=== PATIENT | female | born 1975 | race African-American/Black ===

== ENCOUNTER 2018-10-09 06:13 | Emergency (ER) | payer OTHER ==
[2018-10-09 06:57] LABS: Absolute Lymphocytes (CBC) 2.6 K/uL (0.7-4.9); Basophils % 0.8 % (0-1.3); Hematocrit 38.9 % (36.0-45.0); Lymphocytes % 24.1 % (15.3-44.8); MPV 8.6 fL (7.6-11.3); RBC Red Blood Cell Count 4.72 M/uL (3.86-4.86)
[2018-10-09] MEDS ORDERED: ASPIRIN 81 MG CHEWABLE TABLET ONE (07:00)
[2018-10-09 07:10] LABS: Protime INR 1.07
[2018-10-09 07:19] LABS: ALT/SGPT 19 U/L (12-78); AST/SGOT 13 U/L (15-37); Albumin 3.4 g/dL (3.4-5.0); Alkaline Phosphatase 83 U/L (45-117); BUN Blood Urea Nitrogen 9 mg/dL (7-18); Bicarbonate 25 mmol/L (21-32); Bilirubin Direct < 0.1 mg/dL (0-0.2); Bilirubin Total 0.1 mg/dL (0.2-1.0); Glucose Level 108 mg/dL (74-106); NT PRO-BNP 82 pg/mL (<125); Protein, Total 6.8 g/dL (6.4-8.2); Sodium Level 141 mmol/L (136-145); Troponin (Emerg Dept Use Only) < 0.02 ng/mL (0.0-0.045)
--- NOTE | 2018-10-09 08:17 | RAD REPORT ---
EXAM DESCRIPTION: RAD - Chest Single View - 10/09/2018 6:48 am CLINICAL HISTORY: CHEST PAIN Chest pain. COMPARISON: CHEST SINGLE VIEW dated 06/19/2014; CTANGIO CHEST FOR PE dated 06/19/2014 FINDINGS: Portable technique limits examination quality. The lungs are grossly clear. The heart is normal in size. No displaced fractures. IMPRESSION: No acute intrathoracic process suspected.
--- NOTE | 2018-10-09 10:12 | ER ---
Nurse's Notes [facility] Name: Marie Lugo Age: 43 yrs Sex: Female : 1975 Arrival Date: 10/09/2018 Time: 06:16 Bed 6 Private MD: Diagnosis: Chest pain, unspecified Presentation: 10/09 06:40 Presenting complaint: Patient states: Chest pain x 2 days with shortness of breath, lp1 states pain with respiration; Patient states "I just want to make sure I'm okay to go back to work today". Transition of care: patient was not received from another setting of care. Onset of symptoms was October 09, 2018. Risk Assessment: Do you want to hurt yourself or someone else? Patient reports no desire to harm self or others. Initial Sepsis Screen: Does the patient meet any 2 criteria? No. Patient's initial sepsis screen is negative. Does the patient have a suspected source of infection? No. Patient's initial sepsis screen is negative. Care prior to arrival: None. 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 - Social history:: Smoking status: Patient uses tobacco products, smokes one pack cigarettes per day. - Ebola Screening: : No symptoms or risks identified at this time. Screenin:44 Abuse screen: Denies threats or abuse. Denies injuries from another. Nutritional lp1 screening: No deficits noted. Tuberculosis screening: No symptoms or risk factors identified. Fall Risk None identified. Assessment: 06:44 General: Appears in no apparent distress. Behavior is calm, cooperative, appropriate lp1 for age. Pain: Complains of pain in chest Pain does not radiate. Pain currently is 10 out of 10 on a pain scale. Quality of pain is described as squeezing, Pain began 2-3 days ago. Neuro: Level of Consciousness is awake, alert, obeys commands, Oriented to person, place, time, situation, Gait is steady. Cardiovascular: Patient's skin is warm and dry. Rhythm is sinus rhythm. Respiratory: Reports shortness of breath pain with respiration Respiratory effort is even, unlabored, Breath sounds are clear bilaterally. GI: Abdomen is non-distended. : No signs and/or symptoms were reported regarding the genitourinary system. EENT: No signs and/or symptoms were reported regarding the EENT system. Derm: Skin is intact, Skin is dry, Skin is normal. Musculoskeletal: No deficits noted. 07:30 Reassessment: Patient appears in no apparent distress at this time. Patient and/or hb family updated on plan of care and expected duration. Pain level reassessed. Patient is alert, oriented x 3, equal unlabored respirations, skin warm/dry/pink. 08:30 Reassessment: Patient appears in no apparent distress at this time. No changes from hb previously documented assessment. Patient and/or family updated on plan of care and expected duration. Pain level reassessed. Patient is alert, oriented x 3, equal unlabored respirations, skin warm/dry/pink. 09:14 Reassessment: Patient appears in no apparent distress at this time. No changes from hb previously documented assessment. Patient and/or family updated on plan of care and expected duration. Pain level reassessed. Patient is alert, oriented x 3, equal unlabored respirations, skin warm/dry/pink. 10:00 Reassessment: Patient appears in no apparent distress at this time. Patient and/or hb family updated on plan of care and expected duration. Pain level reassessed. Patient is alert, oriented x 3, equal unlabored respirations, skin warm/dry/pink. Vital Signs: 06:41 BP 120 / 74; Pulse 71; Resp 20; Temp 97.3; Pulse Ox 98% on R/A; Weight 80.74 kg (R); lp1 Height 5 ft. 4 in. (162.56 cm); Pain 10/10; 08:00 BP 117 / 76; Pulse 67; Resp 15; Pulse Ox 100% on R/A; hb 09:00 BP 108 / 89; Pulse 60; Resp 14; Pulse Ox 100% on R/A; hb 10:00 BP 112 / 78; Pulse 61; Resp 15; Pulse Ox 100% on R/A; Pain 4/10; hb 06:41 Body Mass Index 30.55 (80.74 kg, 162.56 cm) lp1 ED Course: 06:16 Patient arrived in ED. ag3 06:21 Diya Nolasco FNP-C is [facility]. kb 06:21 Baljit Murguia MD is Attending Physician. kb 06:39 Arianna Cesar, RN is Primary Nurse. lp1 06:41 Triage completed. lp1 06:42 Arm band placed on right wrist. lp1 06:45 Patient has correct armband on for positive identification. Placed in gown. Bed in low lp1 position. glassware selector on. Pulse ox on. NIBP on. 06:45 Patient maintains SpO2 saturation greater than 95% on room air. lp1 06:45 Initial lab(s) drawn, by de, sent to lab. Inserted saline lock: 20 gauge in left bb antecubital area, using aseptic technique. Blood collected. 06:46 X-ray completed. Portable x-ray completed in exam room. Patient tolerated procedure kw well. 06:49 XRAY Chest (1 view) In Process Unspecified. EDMS 07:27 Basic Metabolic Panel Sent. sv 07:27 CBC with Diff Sent. sv 07:27 LFT's Sent. sv 07:27 Magnesium Sent. sv 09:36 Troponin (emerg Dept Use Only) Sent. hb 10:22 No provider procedures requiring assistance completed. IV discontinued, intact, hb bleeding controlled, No redness/swelling at site. Pressure dressing applied. Administered Medications: 06:47 Drug: Aspirin Chewable Tablet 324 mg Route: PO; jd3 Outcome: 10:11 Discharge ordered by . kb 10:22 Discharged to home ambulatory. hb 10:22 Condition: stable 10:22 Discharge instructions given to patient, Instructed on discharge instructions, follow up and referral plans. Demonstrated understanding of instructions, follow-up care. 10:23 Patient left the ED. hb Signatures: Dispatcher [employer] EDMS Diya Nolasco FNP-C FNP-Ckb Verde, Stephanie, RN RN sv Ballard, Brenda, RN RN bb Whitley, Kimberlee kw Pena, Laura, RN RN lp1 Ronda Oseguera RN RN hb Dilip, Brian RN RN jd3 Chriss, Coreen ag3
--- NOTE | 2018-10-09 10:13 | EDPHYS ---
Physician Documentation [facility] Name: Marie Lugo Age: 43 yrs Sex: Female : 1975 Arrival Date: 10/09/2018 Time: 06:16 Bed 6 Private MD: ED Physician Baljit Murguia HPI: 10/09 06:29 This 43 yrs old Black Female presents to ER via Unassigned with complaints of Chest kb Pain. 06:29 The patient or guardian reports chest pain that is located primarily in the anterior kb chest wall, left. Onset: 3 day(s) ago. The pain does not radiate. Associated signs and symptoms: Pertinent positives: shortness of breath, Pertinent negatives: abdominal pain, cough, diaphoresis, dizziness, headache, lower extremity pain, lower extremity swelling, lightheadedness, nausea, near syncope, palpitations, recent travel, syncope, vomiting. The chest pain is described as tightness. Duration: The patient or guardian reports a single episode. Modifying factors: The symptoms are alleviated by nothing. the symptoms are aggravated by deep breath. Severity of pain: At its worst the pain was moderate in the emergency department the pain is unchanged. The patient has not experienced similar symptoms in the past. The patient has not recently seen a physician. Pt reports chest pain for 3 days. Today pain feels tight. Reports shortness of breath and increased pain with deep inspiration. States "I just want to get checked because I have to go to work today.". 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 - Social history:: Smoking status: Patient uses tobacco products, smokes one pack cigarettes per day. - Ebola Screening: : No symptoms or risks identified at this time. ROS: 06:28 Constitutional: Negative for fever, chills, and weight loss, ENT: Negative for injury, kb pain, and discharge, Neck: Negative for injury, pain, and swelling, Abdomen/GI: Negative for abdominal pain, nausea, vomiting, diarrhea, and constipation, Back: Negative for injury and pain, : Negative for injury, bleeding, discharge, and swelling, MS/Extremity: Negative for injury and deformity, Skin: Negative for injury, rash, and discoloration, Neuro: Negative for headache, weakness, numbness, tingling, and seizure. 06:28 Cardiovascular: Positive for chest pain, Negative for edema, orthopnea, palpitations, paroxysmal nocturnal dyspnea. 06:28 Respiratory: Positive for shortness of breath, Negative for cough, dyspnea on exertion, hemoptysis, orthopnea, pleurisy, sputum production, wheezing. Exam: 06:28 Constitutional: This is a well developed, well nourished patient who is awake, alert, kb and in no acute distress. Head/Face: Normocephalic, atraumatic. Neck: Trachea midline, no thyromegaly or masses palpated, and no cervical lymphadenopathy. Supple, full range of motion without nuchal rigidity, or vertebral point tenderness. No Meningismus. Chest/axilla: Normal chest wall appearance and motion. Nontender with no deformity. No lesions are appreciated. Cardiovascular: Regular rate and rhythm with a normal S1 and S2. No gallops, murmurs, or rubs. Normal PMI, no JVD. No pulse deficits. Respiratory: Lungs have equal breath sounds bilaterally, clear to auscultation and percussion. No rales, rhonchi or wheezes noted. No increased work of breathing, no retractions or nasal flaring. Abdomen/GI: Soft, non-tender, with normal bowel sounds. No distension or tympany. No guarding or rebound. No evidence of tenderness throughout. Back: No spinal tenderness. No costovertebral tenderness. Full range of motion. Skin: Warm, dry with normal turgor. Normal color with no rashes, no lesions, and no evidence of cellulitis. MS/ Extremity: Pulses equal, no cyanosis. Neurovascular intact. Full, normal range of motion. Neuro: Awake and alert, GCS 15, oriented to person, place, time, and situation. Cranial nerves II-XII grossly intact. Motor strength 5/5 in all extremities. Sensory grossly intact. Cerebellar exam normal. Normal gait. 06:39 ECG was reviewed by the Attending Physician. kb Vital Signs: 06:41 BP 120 / 74; Pulse 71; Resp 20; Temp 97.3; Pulse Ox 98% on R/A; Weight 80.74 kg (R); lp1 Height 5 ft. 4 in. (162.56 cm); Pain 10/10; 08:00 BP 117 / 76; Pulse 67; Resp 15; Pulse Ox 100% on R/A; hb 09:00 BP 108 / 89; Pulse 60; Resp 14; Pulse Ox 100% on R/A; hb 10:00 BP 112 / 78; Pulse 61; Resp 15; Pulse Ox 100% on R/A; Pain 4/10; hb 06:41 Body Mass Index 30.55 (80.74 kg, 162.56 cm) lp1 MDM: 06:21 Patient medically screened. kb 06:28 The patient was given aspirin in the Emergency Department. Data reviewed: vital signs, kb nurses notes. 10:10 Data interpreted: Pulse oximetry: on room air is 100 %. Interpretation: normal. kb Counseling: I had a detailed discussion with the patient and/or guardian regarding: the historical points, exam findings, and any diagnostic results supporting the discharge/admit diagnosis, lab results, radiology results, the need for outpatient follow up, a family practitioner, to return to the emergency department if symptoms worsen or persist or if there are any questions or concerns that arise at home. 10/09 06:28 Order name: Basic Metabolic Panel 10/09 06:28 Order name: CBC with Diff 10/09 06:28 Order name: LFT's 10/09 06:28 Order name: Magnesium 10/09 06:28 Order name: NT PRO-BNP; Complete Time: 07:22 kb 10/09 06:28 Order name: PT-INR; Complete Time: 07:11 kb 10/09 06:28 Order name: Troponin (emerg Dept Use Only); Complete Time: 07:22 kb 10/09 06:28 Order name: XRAY Chest (1 view); Complete Time: 08:19 kb 10/09 06:28 Order name: D-Dimer; Complete Time: 07:11 kb 10/09 06:29 Order name: Basic Metabolic Panel; Complete Time: 07:22 EDMS 10/09 06:29 Order name: CBC with Automated Diff; Complete Time: 06:59 [facility] 10/09 06:29 Order name: Liver (Hepatic) Function; Complete Time: 07:22 [facility] 10/09 06:29 Order name: Magnesium; Complete Time: 07:22 [facility] 10/09 09:12 Order name: Troponin (emerg Dept Use Only); Complete Time: 10:10 kb 10/09 06:28 Order name: EKG; Complete Time: 06:30 kb 10/09 06:28 Order name: Cardiac monitoring; Complete Time: 06:43 kb 10/09 06:28 Order name: EKG - Nurse/Tech; Complete Time: 06:44 kb 10/09 06:28 Order name: IV Saline Lock; Complete Time: 06:47 kb 10/09 06:28 Order name: Labs collected and sent; Complete Time: 06:47 kb 10/09 06:28 Order name: O2 Per Protocol; Complete Time: 06:44 kb 10/09 06:28 Order name: O2 Sat Monitoring; Complete Time: 06:44 kb 10/09 09:12 Order name: EKG; Complete Time: 09:13 kb 10/09 09:12 Order name: EKG - Nurse/Tech; Complete Time: 09:36 kb EC:39 Rate is 62 beats/min. Rhythm is regular, Normal Sinus Rhythm. QRS [place] is Normal. ND kb interval is normal at 124 msec. QRS interval is normal at 72 msec. QT interval is normal at 390 msec. Clinical impression: Normal ECG. Interpreted by me. Reviewed by me. Administered Medications: 06:47 Drug: Aspirin Chewable Tablet 324 mg Route: PO; jd3 Disposition: 10/09/18 10:11 Discharged to Home. Impression: Chest pain, unspecified. - Condition is Stable. - Discharge Instructions: Nonspecific Chest Pain, [id number]. - Medication Reconciliation Form, Thank You Letter, Antibiotic Education, Prescription Opioid Use, Work release form form. - Follow up: Emergency Department; When: As needed; Reason: Worsening of condition. Follow up: Private Physician; When: 2 - 3 days; Reason: Recheck today's complaints, Continuance of care, Re-evaluation by your physician. Signatures: Dispatcher [employer] EDDiya Vazquez, BUSINESS PROCESS EXPERT-C BUSINESS PROCESS EXPERT-Arianna Gallegos, RN RN lp1 Ronda Oseguera RN RN Brian Cherry RN RN jd3 Corrections: (The following items were deleted from the chart) 10:23 10:11 10/09/2018 10:11 Discharged to Home. Impression: Chest pain, unspecified. hb Condition is Stable. Forms are Medication Reconciliation Form, Thank You Letter, Antibiotic Education, Prescription Opioid Use. Follow up: Emergency Department; When: As needed; Reason: Worsening of condition. Follow up: Private Physician; When: 2 - 3 days; Reason: Recheck today's complaints, Continuance of care, Re-evaluation by your physician. kb
--- NOTE | 2018-10-09 12:24 | EKG ---
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
--- NOTE | 2018-10-09 12:25 | EKG ---
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
== END 2018-10-09 10:23 | disposition home or self-care (01) ==
LOC: ER 06:13
DX: R07.9 Chest pain, unspecified (principal); R06.02 Shortness of breath; J45.909 Unspecified asthma, uncomplicated; F31.9 Bipolar disorder, unspecified; Z88.5 Allergy status to narcotic agent; Z88.0 Allergy status to penicillin; Z79.82 Long term (current) use of aspirin
CPT/HCPCS: 36415; 71045; 80048; 80076; 83735; 83880; 84484; 85025; 85379; 85610; 93005; 99285

== ENCOUNTER 2023-07-18 15:36 | Emergency (ER) | payer OTHER ==
--- OUTSIDE RECORDS SUMMARY | 2023-07-18 15:39 | XMS REPORT | Continuity of Care Document ---
Author Name Unknown Address [address] [facility] [address] [place] [address] [facility] thconnect Address [address] 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 Iron Name Role Phone ARPITA ROSE Primary Care Physician UnavailYUMIKO Uribe Attending Clinician Unavailable Yumiko Tinoco DO Attending Clinician [phone] Doctor Unassigned, [place] Attending Clinician U Jhony Smith MD Attending Clinician [phone] JHONY ROTHMAN Attending Clinician PARIS Kong Attending Clinician Unavailable Paris Cordova MD Attending Clinician [phone] LISA DONALDSON Attending Clinician [place], [facility] Attending Clinician Thao Montemayor MD Attending Clinician [phone] THAO SANDERS Attending Clinician Lisa Barry MD Attending Clinician [phone] TIMBO GARCIA Attending Clinician RADHA Leyva Attending Clinician Unavailable PARIS CORDOVA Admitting Clinician Unavailable Payers Payer Name Policy Type Policy Number Effective Date Expirati on Date Source COMMERCIAL NON-CONTRACT GENERIC [id number] 2023 00:00:00 2023 00:00:00 [facility] [id number] 2020 00:00:00 ALLIED BENEFIT [id number] 2016 00:00:00 Problems Condition Name Condition Details Condition Category Status Onset Date Resolution Date Last Treatment Date Treating Clinician Comments Source Bipolar 1 disorder Bipolar 1 disorder Disease Active [facility] Allergies, Adverse Reactions, Alerts Allergy Name Allergy Type Status Severity Reaction(s) Onset Date Inactive Date Treating Clinician Comments Source PENICILL IN DRUG INGREDI Active Unknown-Cmnt 07-24 00:00: 00 [facility] Penicill in Propensi ty to adverse reaction s Active Unknown - See comments 07-24 00:00: 00 [facility] CODEINE DRUG INGREDI Active Unknown-Cmnt 07-24 00:00: 00 [facility] Penicill ins Propensi ty to adverse reaction s Active Rash 10-19 00:00: 00 [facility] PENICILL INS Drug Class Active Rash 10-19 00:00: 00 [facility] Penicill ins Propensi ty to adverse reaction s Active Rash 10-19 00:00: 00 [facility] Social History Social Habit Start Date Stop Date Quantity Comments Source [facility] of tobacco use Smokes tobacco daily [facility] Exposure to SARS-CoV-2 (event) 2021-09-13 00:00:00 2021-09-23 10:48:00 Not sure [facility] History of Social function 2021-09-23 00:00:00 2021-09-23 00:00:00 [facility] Tobacco use and exposure 2017-03-15 00:00:00 2017-03-15 00:00:00 Smokeless tobacco non-user [facility] Sex Assigned At 1975 00:00:00 1975 00:00:00 [facility] Smoking Status Start Date Stop Date Source Tobacco smoking consumption unknown [facility] Smokes tobacco daily 2017-03-15 00:00:00 [facility] Medications Ordered Medication Name Filled Medication Name Start Date Stop Date Current Medication? Ordering Clinician Indication Dosage Frequency Signature (SIG) Comments Components Source proCHLORper azine (COMPAZINE) injection 5 mg 05-18 00:00: 00 05-17 23:25 :00 No 5mg 5 mg, Slow IV Push, ONCE, 1 dose, On Coreen 05/17/23 at 1800, CAMILO [facility] diphenhydrA MINE (BENADRYL) injection 25 mg 05-17 23:15: 00 05-17 23:25 :00 No 25mg 25 mg, Slow IV Push, ONCE, 1 dose, On Coreen 05/17/23 at 1715, STAT [facility] risperiDONE (RISPERDAL) 4 mg tablet 05-17 19:32: 51 05-17 00:00 :00 No 4mg Take 4 mg by mouth at bedtime. [facility] lamoTRIgine (LAMICTAL) 200 mg tablet 05-17 19:32: 51 05-17 00:00 :00 No 200mg Take 200 mg by mouth 2 (two) times daily. [facility] hydrOXYzine (ATARAX) 50 mg tablet 05-17 18:52: 33 05-17 00:00 :00 No 50mg Take 50 mg by mouth 3 (three) times daily as needed for Itching. [facility] hydrOXYzine (VISTARIL) 50 mg capsule 05-17 00:00: 00 Yes [id number] 50mg Take 1 capsule by mouth 3 (three) times daily as needed for Itching. [facility] lamoTRIgine 200 mg tablet 05-17 00:00: 00 Yes [id number] 200mg Take 1 tablet by mouth in the morning and 1 tablet in the evening. [facility] risperiDONE (RISPERDAL) 4 mg tablet 05-17 00:00: 00 Yes [id number] 4mg Take 1 tablet by mouth at bedtime. [facility] cyclobenzap rine 10 mg tablet 09-23 00:00: 00 Yes 10mg Take 1 tablet by mouth 3 (three) times daily. [facility] methylPREDN ISolone (METHYLPRED DP) 4 mg tablets 09-23 00:00: 00 Yes Take by mouth SEE-INSTRU CTIONS. follow package directions [facility] permethrin 5 % cream 05-02 00:00: 00 Yes [id number] Thoroughly massage cream from head to soles of feet; leave on for 8 to 14 hours, then shower or bathe. [facility] hydrOXYzine (VISTARIL) 50 mg capsule 05-02 00:00: 00 05-17 00:00 :00 No [id number] 50mg Take 1 capsule by mouth 3 (three) times daily as needed for Itching. [facility] diclofenac 75 mg EC tablet 07-24 00:00: 00 Yes [id number] 75mg Take 1 tablet by mouth 2 (two) times daily with meals. [facility] traMADol 100 mg 24 hr tablet 06-27 00:00: 00 Yes TK 1 T PO D. [facility] lamoTRIgine 200 mg tablet 06-20 00:00: 00 05-17 00:00 :00 No TK 1 T PO BID. [facility] gabapentin 300 mg capsule 05-16 00:00: 00 Yes TK 1 C PO BID [facility] risperiDONE (RISPERDAL) 4 mg tablet 2016-04 15:12: 02 Yes 4mg Take 4 mg by mouth at bedtime. [facility] lamoTRIgine (LAMICTAL) 200 mg tablet 2016-04 15:12: 02 Yes 200mg Take 200 mg by mouth 2 (two) times daily. [facility] hydrOXYzine (ATARAX) 50 mg tablet 2016-04 15:12: 02 Yes 50mg Take 50 mg by mouth 3 (three) times daily as needed for Itching. [facility] TRAZODONE HCL (TRAZODONE ORAL) 2016-04 15:12: 02 Yes Take by mouth. [facility] gabapentin 300 mg capsule 2016-04 00:00: 00 Yes [facility] meloxicam 7.5 mg tablet 2016-04 00:00: 00 Yes [facility] Vital Signs Vital Name Observation Time Observation Value Comments S jillian Systolic blood pressure 2023-05-18 01:05:29 115 mm[Hg] [facility] Diastolic blood pressure 2023-05-18 01:05:29 81 mm[Hg] [facility] Heart rate 2023-05-18 01:05:29 60 /min [facility] Respiratory rate 2023-05-18 01:05:29 18 /min [facility] Oxygen saturation in Arterial blood by Pulse oximetry 2023-05-18 01:05:29 96 /min [facility] Body temperature 2023-05-17 21:35:00 36.89 Sarah [facility] Body height 2023-05-17 21:35:00 162.6 cm [facility] Body weight 2023-05-17 21:35:00 83.008 kg [facility] BMI 2023-05-17 21:35:00 31.41 kg/m2 [facility] Systolic blood pressure 2021-09-23 15:50:00 115 mm[Hg] [facility] Diastolic blood pressure 2021-09-23 15:50:00 68 mm[Hg] [facility] Body height 2021-09-23 15:50:00 162.6 cm [facility] Body weight 2021-09-23 15:50:00 82.555 kg [facility] BMI 2021-09-23 15:50:00 31.24 kg/m2 [facility] Procedures Procedure Date / Time Performed Performing Clinicia n Source COMP. METABOLIC PANEL (69437) 2023-05-17 23:28:00 Yumiko Tinoco [facility] CBC WITH DIFF 2023-05-17 23:28:00 Yumiko Tinoco [facility] ASSIGNMENT OF BENEFITS 2023-05-17 22:15:36 Docto r Unassigned, [place] [facility] CONSENT/REFUSAL FOR DIAGNOSIS AND TREATMENT 2023-05-17 21:31:52 Doctor Unassigned, [place] [facility] REFERRAL- REQUEST/RESPONSE 2021-10-03 05:01:00 Doctor Unassigned, [place] [facility] Encounters Start Date/Time End Date/Time Encounter Type Admission Type Attending Clinicians Care Facility Care Department Encounter ID Source 2021-02-12 17:48:15 Emergency [facility] [id number] [facility] 2023-05-17 15:59:00 2023-05-17 19:44:00 Emergency X YUMIKO TINOCO [facility] ERT [id number] [facility] 2023-05-17 15:59:00 2023-05-17 19:44:00 Emergency Yumiko Tinoco [facility] 1.2.840.114 350.1.13.10 4.2.7.2.686 [id number] [facility] 2021-10-03 00:00:00 2021-10-03 00:00:00 Orders Only Doctor Unassigned, [place] [facility] 1.2840.114 350.1.13.10 4.2.7.2.686 [id number] [facility] 2021-09-27 00:00:00 2021-09-27 00:00:00 Telephone Bonifacio Rothmansukhdev Elena [facility] 1..840.114 350.1.13.10 4.2.7.2.686 [id number] [facility] 2021-09-23 11:00:00 2021-09-23 11:05:47 Outpatient R JHONY ROTHMAN [facility] [id number] [facility] 2021-09-23 11:00:00 2021-09-23 11:05:47 Office Visit Hugh Jhony Elena [facility] 1.2.840.114 350.1.13.10 4.2.7.2.686 [id number] [facility] 2021-09-21 19:12:00 2021-09-21 23:04:00 Emergency X PARIS CORDOVA [facility] ERT [id number] [facility] 2021-09-21 19:12:00 2021-09-21 23:04:00 Emergency Paris Cordova [facility] 1.2840.114 350.1.13.10 4.2.7.2.686 [id number] [facility] 2021-09-21 19:12:00 2021-09-21 23:04:00 Emergency X PARIS CORDOVA [facility] ERT [id number] [facility] 2020-08-18 00:00:00 2020-08-18 00:00:00 [facility] [id number] [facility] 2020-08-16 16:08:40 2020-08-16 16:23:40 Ostomy Rn Visit Pob, Adc Lab Main Thao Sanders [facility] Professio [facility] 1.2.840.114 350.1.13.10 4.2.7.2.686 [id number] [facility] 2020-08-16 16:15:00 2020-08-16 16:15:00 Outpatient Rishi SANDERS [facility] [id number] [facility] 2020-08-16 00:00:00 2020-08-16 00:00:00 Orders Only Doctor Unassigned, [place] [facility] 1.2840.114 350.1.13.10 4.2.7.2.686 [id number] [facility] 2020-07-05 10:58:58 2020-07-05 23:59:00 Hospital Encounter Lisa Donaldson [facility] 1.2840.114 350.1.13.10 4.2.7.2.686 [id number] [facility] 2020-07-05 12:00:00 2020-07-05 12:00:00 Outpatient R LISA DONALDSON [facility] [id number] [facility] 2020-07-05 10:55:38 2020-07-05 11:10:38 Ostomy Rn Visit Pob, Adc Lab Main Lisa Donaldson [facility] 1..840.114 350.1.13.10 4.2.7.2.686 [id number] [facility] 2020-07-05 00:00:00 2020-07-05 00:00:00 Orders Only Doctor Unassigned, [place] [facility] 1..840.114 350.1.13.10 4.2.7.2.686 [id number] [facility] 2020-05-02 17:43:00 2020-05-02 19:32:00 Emergency X TIMBO GARCIA [facility] ERT [id number] [facility] 2019-10-22 00:00:00 2019-10-22 00:00:00 Patient Secure Msg Doctor Unassigned, [place] [facility] 1..840.114 350.1.13.10 4.2.7.2.686 [id number] [facility] 2019-10-21 09:00:00 2019-10-21 09:00:00 Outpatient RADHA PRATT [facility] [id number] [facility] 2019-10-21 08:00:00 2019-10-21 08:00:00 Outpatient Rishi [facility] [id number] [facility] 2017-03-27 16:00:00 2017-03-27 16:00:00 Outpatient JHONY MCCRACKEN [facility] RAD [id number] [facility] Results Test Description Test Time Test Comments Results Result Co mments [facility]2023-[facility]-18 00:47:38* Test Item Value Reference Range Interpretation Comme nts NA (test code = 5592327790) 138 mmol/L 135-145 K (test code = 0651370940) 4.3 mmol/L 3.5-5.0 CL (test code = 6440658129) 107 mmol/L 98-108 CO2 TOTAL (test code = 0796655069) 24 mmol/L 23-31 AGAP (test code = 9295093320) 7 2-16 BUN (test code = 1874199396) 12 mg/dL 7-23 GLUCOSE (test code = 9797565659) 77 mg/dL 70-110 CREATININE (test code = 1387568825) 0.54 mg/dL 0.50-1.04 TOTAL BILI (test code = 1108607351) 0.6 mg/dL 0.1-1.1 CALCIUM (test code = 3672508207) 9.2 mg/dL 8.6-10.6 T PROTEIN (test code = 8204358914) 8.2 g/dL 6.3-8.2 ALBUMIN (test code = 5431538814) 4.5 g/dL 3.5-5.0 ALK PHOS (test code = 8609813296) 74 U/L 34-122 ALTv (test code = 1742-6) 14 U/L 5-35 AST(SGOT) (test code = 3765264381) 30 U/L 13-40 eGFR (test code = 61586-4) 114.4 mL/min/1.73m2 CKD-EPI eGFR (20 21). Assuming creatinine has been stable day-to-day for at least three months, the eGFR indicates Category G1 (>= 90 mL/min/1.73 m2) [facility] Notes Date/Time Note Provider Source 2023-05-17 19:12:23 M6/hAS/wMzww1wiDN9LY Iz6yUKyP/yZxqC 3bMs03akoZzc01m3vOl5Z4bQl320bD9092 -02-01T19:12:23 PT D/C home. GCS15, VS stable. Given D/C paperwork. Pt ambulatory at time of discharge. Pt educated on med usage, follow up care, s/s worsening condition, need for hydration. Pt verbalized understanding. Pt ambulated from ED in NAD. 39381-1Iqsegywxa department UqwjQE9202-75-69T45:12:59[facility] NoteTXT1.2.840.974850.1.13.104.2.7 .2.041071|[id number] for patient axxm45073-7InsdHUTORSCAAYTOxqrwkbk d C-CDA narrative [id number] E Linkes RN[address] Cncz[id number] 23ISFINRMDNFTCBXUZSCIVZY9648-28-56 T19:12:591.2.840.852524.1.72.3.15| 1.2.840.938820.1.13.104.2.7.2.7278 [id number] Leanna Senior RN [facility] 2023-05-17 15:45:00 dPQn0nbos6DFlBobYEjz 9Ju//bkepIhv09 cK7Vbj8bqUB7AJ8o53Z1raS1rc8Vgi7496 -02-01T15:45:00 Patient states: "I've been checking my blood pressure at home and at work and it's been constantly high since a week now, I am not hypertensive and not on meds. I checked my BP the night before and it was 169/98. I'm also having headaches since 10 days now. Today an hour ago at work I feel like my face is twitching and I got pain on my left neck, arm and legs, can't explain the feeling." 31297-4Qbcwefuxg department Triage iauyRJ2424-16-21J34:11:45[facility] Triage noteTXT1.2.840.382119.1.13.104.2.7 .2.646964|[id number] for patient usnv63994-0Ycxkjkfqm department NoteLNNARRATIVEFormatted C-CDA narrative [id number] C Hered[place] [address] Xj[id number] 94XBBXLTSNZUIUIAATHVBCSR6386-57-78 T16:11:451.2.840.289038.1.72.3.15| 1.2.840.898185.1.13.104.2.7.2.7278 [id number] Cindy Posada [facility]
[2023-07-18] MEDS ORDERED: FAMOTIDINE 20 MG/2 ML VIAL IV ONE (15:57)
[2023-07-18 16:41] LABS: Absolute Basophils 0.2 K/uL (0-0.5); Absolute Eosinophils 0.1 K/uL (0-0.5); Absolute Lymphocytes (CBC) 3.6 K/uL (0.7-4.9); Absolute Monocytes 0.6 K/uL (0.1-1.3); Absolute Neutrophil 7.6 K/uL (1.8-8.0); Basophils % 1.3 % (0-1.3); Eosinophils % 1.1 % (0-4.4); Hematocrit 36.6 % (36.0-45.0); Hemoglobin 11.5 g/dL (12.0-15.0); Lymphocytes % 29.8 % (15.3-44.8); MCH 25.4 pg (27.0-35.0); MCHC 31.5 g/dL (32.0-36.0); MCV 80.8 fL (80-100); MPV 8.4 fL (7.6-11.3); Monocytes % 5.2 % (3.3-12.3); Neutrophils % 62.6 % (41.7-73.7); Platelets 271 thou/uL (152-406); RBC Red Blood Cell Count 4.53 M/uL (3.86-4.86); Red Cell Distribution Width 14.8 % (12.1-15.2)
[2023-07-18 16:45] LABS: PT Prothrombin Time 12.9 SECONDS (9.5-12.5); Protime INR 1.18
--- NOTE | 2023-07-18 17:00 | RAD REPORT ---
[facility] DES[facility] 4:29 pm CLINICAL HISTORY: CHEST PAIN COMPARISON: Chest Single View dated 10/09/2018; CHEST SINGLE VIEW dated 06/19/2014 TECHNIQUE: Portable AP view of the chest. FINDINGS: The lungs are clear. No pneumothorax or effusion. The cardiomediastinal contours are unre markable. IMPRESSION: No acute cardiopulmonary process.
[2023-07-18 17:06] LABS: ALT/SGPT 16 U/L (13-56); AST/SGOT 13 U/L (15-37); Albumin 3.6 g/dL (3.4-5.0); Alkaline Phosphatase 80 U/L (45-117); Anion Gap 7.6 mEq/L (5.0-15.0); BUN Blood Urea Nitrogen 15 mg/dL (7-18); Bicarbonate 24 mEq/L (21-32); Bilirubin Direct 0.1 mg/dL (0-0.2); Bilirubin Indirect, Calculated 0.1 mg/dL (0.2-0.8); Bilirubin Total 0.2 mg/dL (0.2-1.0); Globulin 3.5 g/dL (2.3-3.5); Glomerular Filtration Rate 108 ml/min (=/>90); Glucose Level 90 mg/dL (74-106); Lipase 18 U/L (13-75); NT PRO-BNP 84 pg/mL (<125); Potassium 3.6 mEq/L (3.5-5.1); Protein, Total 7.1 g/dL (6.4-8.2); Sodium Level 140 mEq/L (136-145)
[2023-07-18 17:07] LABS: Troponin High Sensitivity < 3.0 pg/mL (<58.9)
--- NOTE | 2023-07-18 18:20 | EDPHYS ---
Physician Documentation [facility] Name: Marie Kearns Age: 47 yrs Sex: Female : 1975 Arrival Date: 07/18/2023 Time: 15:36 Bed 14 Private MD: ED Physician Xavi Talavera HPI: 07/17 16:03 This 47 yrs old Black Female presents to ER via EMS with complaints of Chest Pain. ms3 16:03 47-year-old female with past medical history of asthma, arthritis, bipolar disorder ms3 presents to the emergency department for chest pain that began at 2:40 PM after taking a shower. Patient states the pain is sharp located substernally and does not radiate. Patient rates pain 10/10. EMS notes patient's vital signs to be stable, twelve-lead was normal sinus rhythm. Patient denies any alleviating or inciting factors. Patient did receive 324 mg aspirin via EMS. Historical: - Allergies: 15:39 PENICILLINS; bp 15:39 Tylenol-Codeine #3; bp - Home Meds: 15:39 Lamictal Oral [Active]; Risperdal Oral [Active]; Prozac Oral [Active]; Clonazepam Oral bp [Active]; Hydroxyzine Oral [Active]; - PMHx: 15:39 Asthma; Arthritis; Bipolar disorder; bp - Immunization history:: Adult Immunizations up to date. - Infectious Disease History:: Denies. - Social history:: Smoking status: Patient denies any tobacco usage or history of. ROS: 16:03 Constitutional: Negative for fever, and chills. Neck: Negative for injury, pain, and ms3 swelling, Respiratory: Negative for shortness of breath, cough, wheezing, and pleuritic chest pain, Abdomen/GI: Negative for abdominal pain, nausea, vomiting, diarrhea, and constipation, MS/Extremity: Negative for injury and deformity, 16:03 All other systems are negative, 16:03 Cardiovascular: Positive for chest pain, ms3 Exam: 16:03 Constitutional: This is a well developed, well nourished patient who is awake, alert, ms3 and in no acute distress. Head/Face: Normocephalic, atraumatic. Neck: Trachea midline, no cervical lymphadenopathy. Supple, full range of motion without nuchal rigidity, or vertebral point tenderness. No Meningismus. Chest/axilla: Normal chest wall appearance and motion. Nontender with no deformity. Cardiovascular: Regular rate and rhythm with a normal S1 and S2. No gallops, murmurs, or rubs. Normal PMI, no JVD. No pulse deficits. Respiratory: Lungs have equal breath sounds bilaterally, clear to auscultation and percussion. No rales, rhonchi or wheezes noted. No increased work of breathing, no retractions or nasal flaring. Abdomen/GI: Soft, non-tender, with normal bowel sounds. No distension or tympany. No guarding or rebound. No evidence of tenderness throughout. Skin: Warm, dry with normal turgor. Normal color with no rashes, no lesions, and no evidence of cellulitis. MS/ Extremity: Pulses equal, no cyanosis. Neurovascular intact. Full, normal range of motion. 16:20 ECG was reviewed by the Attending Physician. ms3 Vital Signs: 15:38 BP 138 / 76; Pulse 65; Resp 16; Temp 98; Pulse Ox 99% ; bp 18:37 BP 121 / 69; Pulse 60; Resp 16; Temp 97.9; Pulse Ox 97% ; bp MDM: 15:39 Patient medically screened. zuleima 16:03 Differential diagnosis: abnormal EKG, acute myocardial infarction, anxiety, coronary ms3 artery disease chest wall pain. The patient was not given aspirin in the Emergency Department. Administered by EMS. 17:46 HEART Score: History: Slightly Suspicious (0), ECG: Normal (0), Age: > 45 and < 65 ms3 years (1), Risk Factors: No Risk Factors Known (0), Troponin: < or = 1 x Normal Limit (0), Total Score = 1. Data reviewed: vital signs, nurses notes, lab test result(s), EKG, radiologic studies. Independent interpretation of the following test(s) in the Emergency Department EKG: See my EKG interpretation above X-Ray: My interpretation is CXR image reviewed by me does not show pneumonia, PTX, or pulmonary edema. Counseling: I had a detailed discussion with the patient and/or guardian regarding the historical points, exam findings, and any diagnostic results supporting the discharge/admit diagnosis, lab results, radiology results, the need for outpatient follow up, to return to the emergency department if symptoms worsen or persist or if there are any questions or concerns that arise at home. 07/17 15:46 Order name: D-Dimer; Complete Time: 17:22 ms3 07/17 15:47 Order name: Basic Metabolic Panel; Complete Time: 17:22 zuleima 07/17 15:47 Order name: CBC with Diff; Complete Time: 17:22 zuleima 07/17 15:47 Order name: LFT's; Complete Time: 17:22 zuleima 07/17 15:47 Order name: Magnesium; Complete Time: 17:22 zuleima 07/17 15:47 Order name: NT PRO-BNP; Complete Time: 17:22 zuleima 07/17 15:47 Order name: PT-INR; Complete Time: 17:22 zuleima 07/17 15:47 Order name: Troponin HS; Complete Time: 17:22 zuleima 07/17 15:47 Order name: Lipase; Complete Time: 17:22 zuleima 07/17 17:23 Order name: Troponin High Sensitivity; Complete Time: 18:19 ms3 07/17 15:46 Order name: XRAY Chest (1 view); Complete Time: 17:22 ms3 07/17 15:46 Order name: Cardiac monitoring; Complete Time: 16:20 ms3 07/17 15:46 Order name: EKG - Nurse/Tech; Complete Time: 16:20 ms3 07/17 15:46 Order name: IV Saline Lock; Complete Time: 16:20 ms3 07/17 15:46 Order name: Labs collected and sent; Complete Time: 16:20 ms3 07/17 15:46 Order name: O2 Per Protocol; Complete Time: 16:20 ms3 07/17 15:46 Order name: O2 Sat Monitoring; Complete Time: 16:20 ms3 07/17 15:47 Order name: Cardiac monitoring; Complete Time: 16:20 zuleima 07/17 15:47 Order name: EKG - Nurse/Tech; Complete Time: 16:20 zuleima 07/17 15:47 Order name: IV Saline Lock; Complete Time: 16:20 zuleima 07/17 15:47 Order name: Labs collected and sent; Complete Time: 16:20 zuleima 07/17 15:47 Order name: O2 Per Protocol; Complete Time: 16:20 zuleima 07/17 15:47 Order name: O2 Sat Monitoring; Complete Time: 16:20 zuleima EC:20 Rate is 55 beats/min. Rhythm is regular. QRS [place] is Normal. CO interval is normal. QRS ms3 interval is normal. Clinical impression: Sinus bradycardia. Interpreted by me. Reviewed by me. Administered Medications: 15:55 CANCELLED (Physician Discretion): ns 0.9% 1000 ml IV at 1 bolus Per protocol; 1000 mL ms3 bolus 16:19 CANCELLED (Duplicate Order): aspirinchewable tablet 324 mg PO once; 81 mg tablets x 4 bp 16:20 Drug: Famotidine IVP 20 mg IVP once; dilute with 10 mL 0.9% NaCl; give over 2 minutes bp Route: IVP; Site: right hand; 18:39 Follow up: Response: No adverse reaction bp Disposition Summary: 07/18/23 18:19 Discharge Ordered Notes: Location: Home(07/18/23 18:19) kb Condition: Stable(07/18/23 18:19) kb Diagnosis - Chest pain, unspecified(07/18/23 18:19) kb Followup: ms3 - With: Myles Patel MD - When: 2 - 3 days - Reason: Recheck today's complaints Discharge Instructions: - Discharge Summary Sheet ms3 - Nonspecific Chest Pain, Adult ms3 Forms: - Medication Reconciliation Form kb - Thank You Letter kb - Antibiotic Education kb - Prescription Opioid Use kb - Patient Portal Instructions kb - Leadership Thank You Letter kb Signatures: Dispatcher [employer] EDDiya Vazquez, HIGH DENSITY PRESS OPERATOR-C HIGH DENSITY PRESS OPERATOR-Larryb Baljit Murguia MD MD cha Peltier, Brian, RN RN Xavi Pastor DO DO ms3 Corrections: (The following items were deleted from the chart) 15:47 15:47 D-DIMER+COAG.LAB.BRZ ordered. EDMS EDMS 15:47 15:47 Chest Single View+RAD.RAD.BRZ ordered. EDMS EDMS 15:48 15:48 BASIC METABOLIC PANEL+C.LAB.BRZ ordered. EDMS EDMS 15:48 15:48 CBC+H.LAB.BRZ ordered. EDMS EDMS 15:48 15:48 HEPATIC FUNCTION+C.LAB.BRZ ordered. EDMS EDMS 15:48 15:48 MAGNESIUM+C.LAB.BRZ ordered. EDMS EDMS 15:48 15:48 PROBNP+C.LAB.BRZ ordered. EDMS EDMS 15:48 15:48 PROTIME (+INR)+COAG.LAB.BRZ ordered. EDMS EDMS 15:48 15:48 Troponin High Sensitivity+C.LAB.BRZ ordered. EDMS EDMS 15:48 15:48 LIPASE+C.LAB.BRZ ordered. EDMS EDMS 15:48 15:48 Urinalysis+U.LAB.BRZ ordered. EDMS EDMS 15:48 15:48 Chest Single View+RAD.RAD.BRZ ordered. EDMS EDMS 15:55 15:47 NS 0.9% IV 1000 ml IV at 1 bolus Per protocol; 1000 mL bolus ordered. zuleima ms3 16:05 16:03 Constitutional: Negative for fever, and chills. Neck: Negative for injury, pain, ms3 and swelling, Cardiovascular: Negative for chest pain, and palpitations. Respiratory: Negative for shortness of breath, cough, wheezing, and pleuritic chest pain, Abdomen/GI: Negative for abdominal pain, nausea, vomiting, diarrhea, and constipation, MS/Extremity: Negative for injury and deformity, ms3 16:19 15:47 Aspirin PO Chewable Tablet 324 mg PO once; 81 mg tablets x 4 ordered. zuleima bp 16:37 15:47 CBC+H.LAB.BRZ ordered. EDMS EDMS 16:40 15:47 BASIC METABOLIC PANEL+C.LAB.BRZ ordered. EDMS EDMS 16:40 15:47 HEPATIC FUNCTION+C.LAB.BRZ ordered. EDMS EDMS 16:40 15:47 MAGNESIUM+C.LAB.BRZ ordered. EDMS EDMS 16:40 15:47 PROBNP+C.LAB.BRZ ordered. EDMS EDMS 16:40 15:47 Troponin High Sensitivity+C.LAB.BRZ ordered. EDMS EDMS 17:23 17:23 Troponin High Sensitivity+C.LAB.BRZ ordered. EDMS EDMS 17:45 17:45 Home ms3 ms3 17:45 17:45 new ms3 ms3 17:45 17:45 are unchanged ms3 ms3 17:45 17:45 Stable ms3 ms3 17:45 17:45 Chest pain, unspecified ms3 ms3
--- NOTE | 2023-07-18 18:20 | ER ---
Nurse's Notes [facility] Name: Marie Kearns Age: 47 yrs Sex: Female : 1975 Arrival Date: 07/18/2023 Time: 15:36 Bed 14 Private MD: Diagnosis: Chest pain, unspecified Presentation: 07/17 15:38 Chief complaint: EMS states: CHEST PAIN SINCE 1430. Coronavirus screen: At this time, bp the client does not indicate any symptoms associated with coronavirus-19. Ebola Screen: No symptoms or risks identified at this time. Initial Sepsis Screen: Does the patient meet any 2 criteria? No. Patient's initial sepsis screen is negative. Does the patient have a suspected source of infection? No. Patient's initial sepsis screen is negative. Risk Assessment: Do you want to hurt yourself or someone else? Patient reports no desire to harm self or others. Onset of symptoms was July 18, 2023 at 14:30. Care prior to arrival: Medication(s) given: ASA, 81 mg, x 4. 15:38 Method Of Arrival: EMS: [facility] bp 15:38 Acuity: JESSICA 3 bp Triage Assessment: 15:39 General: Appears in no apparent distress. Behavior is calm, cooperative, appropriate bp for age. Pain: Complains of pain in chest. Cardiovascular: Reports chest pain. Historical: - Allergies: 15:39 PENICILLINS; bp 15:39 Tylenol-Codeine #3; bp - Home Meds: 15:39 Lamictal Oral [Active]; Risperdal Oral [Active]; Prozac Oral [Active]; Clonazepam Oral bp [Active]; Hydroxyzine Oral [Active]; - PMHx: 15:39 Asthma; Arthritis; Bipolar disorder; bp - Immunization history:: Adult Immunizations up to date. - Infectious Disease History:: Denies. - Social history:: Smoking status: Patient denies any tobacco usage or history of. Screenin:37 [facility] ED Fall Risk Assessment (Adult) History of falling in the last 3 months, bp including since admission No falls in past 3 months (0 pts). Abuse screen: Denies threats or abuse. Denies injuries from another. Nutritional screening: No deficits noted. Tuberculosis screening: No symptoms or risk factors identified. Assessment: 15:45 General: SEE TRIAGE NOTE. bp 18:37 Reassessment: DC HOME AMBULATORY. bp Vital Signs: 15:38 BP 138 / 76; Pulse 65; Resp 16; Temp 98; Pulse Ox 99% ; bp 18:37 BP 121 / 69; Pulse 60; Resp 16; Temp 97.9; Pulse Ox 97% ; bp ED Course: 15:38 Patient arrived in ED. bp 15:39 Baljit Murguia MD is Attending Physician. zuleima 15:39 Triage completed. bp 15:39 Arm band placed on. bp 15:46 Attending Physician role handed off by Baljit Murguia MD ms3 15:46 Xavi Talavera DO is Attending Physician. ms3 16:19 Buck Vaz, DEAN is Primary Nurse. bp 16:20 Lipase Sent. bp 16:20 Inserted saline lock: 24 gauge in right hand, using aseptic technique. Blood collected. bp 16:31 XRAY Chest (1 view) In Process Unspecified. EDMS 17:45 Myles Patel MD is Referral Physician. ms3 17:59 Diya Nolasco FNP-C [facility]. kb 18:19 Myles Patel MD is Referral Physician. kb 18:37 Patient has correct armband on for positive identification. Provided Education on: bp NONE. Client placed on continuous cardiac and pulse oximetry monitoring. NIBP monitoring applied. hospital monitor on. 18:37 No provider procedures requiring assistance completed. IV discontinued, intact, bp bleeding controlled, No redness/swelling at site. Pressure dressing applied. 18:39 O2 via ROOM AIR. bp Administered Medications: 15:55 CANCELLED (Physician Discretion): ns 0.9% 1000 ml IV at 1 bolus Per protocol; 1000 mL ms3 bolus 16:19 CANCELLED (Duplicate Order): aspirinchewable tablet 324 mg PO once; 81 mg tablets x 4 bp 16:20 Drug: Famotidine IVP 20 mg IVP once; dilute with 10 mL 0.9% NaCl; give over 2 minutes bp Route: IVP; Site: right hand; 18:39 Follow up: Response: No adverse reaction bp Medication: 18:37 VIS not applicable for this client. bp Outcome: 18:19 Discharge ordered by . kb 18:37 Discharged to home ambulatory, bp 18:37 Condition: stable 18:37 Discharge instructions given to patient, Instructed on discharge instructions, follow up and referral plans. Demonstrated understanding of instructions, follow-up care, 18:39 Patient left the ED. bp Signatures: Dispatcher [employer] Diya Johnson, CLINICAL NURSE OCCUPATIONAL MEDICINE-C CLINICAL NURSE OCCUPATIONAL MEDICINE-Baljit Farfan MD MD cha Peltier, Brian, RN RN Xavi Pastor DO DO ms3
[2023-07-18 18:55] VITALS: BP 121/69; TEMP 97.9; O2SAT 97
--- NOTE | 2023-07-20 11:58 | EKG ---
Test Date: 2023-07-18 Test Time: 15:53:18 Credit Resolution Representative: BP MEASUREMENT RESULTS: Intervals: Rate: 55 ME: 140 QRSD: 76 QT: 414 QTc: 396 Cassel: P: 27 ME: 140 QRS: 59 T: 63 INTERPRETIVE STATEMENTS: Sinus bradycardia Otherwise normal ECG No previous ECG available for comparison Electronically Signed On 07-20-23 11:54:36 CDT by Myles Patel
== END 2023-07-18 18:39 | disposition home or self-care (01) ==
LOC: ER 15:36
DX: R07.9 Chest pain, unspecified (principal); J45.909 Unspecified asthma, uncomplicated; F31.9 Bipolar disorder, unspecified; Z88.0 Allergy status to penicillin; Z88.5 Allergy status to narcotic agent
CPT/HCPCS: 36415; 71045; 80048; 80076; 83690; 83735; 83880; 84484; 85025; 85379; 85610; 93005; 96374; 99285

== ENCOUNTER 2023-11-30 21:04 | Emergency (ER) | payer OTHER ==
[2023-11-30 22:58] LABS: Absolute Basophils 0.1 K/uL (0-0.5); Absolute Eosinophils 0.1 K/uL (0-0.5); Absolute Lymphocytes (CBC) 3.6 K/uL (0.7-4.9); Absolute Monocytes 0.6 K/uL (0.1-1.3); Absolute Neutrophil 5.1 K/uL (1.8-8.0); Eosinophils % 0.7 % (0-4.4); Hemoglobin 12.3 g/dL (12.0-15.0); Lymphocytes % 38.1 % (15.3-44.8); MCH 26.6 pg (27.0-35.0); MCHC 32.3 g/dL (32.0-36.0); MCV 82.3 fL (80-100); Monocytes % 6.3 % (3.3-12.3); Neutrophils % 53.9 % (41.7-73.7); Nucleated Red Blood Cells % 0.2 % (0-0); Platelets 281 thou/uL (152-406); RBC Red Blood Cell Count 4.62 M/uL (3.86-4.86); Red Cell Distribution Width 15.5 % (12.1-15.2)
[2023-11-30 23:07] LABS: PT Prothrombin Time 12.3 SECONDS (9.4-12.5); Protime INR 1.1
[2023-11-30 23:11] LABS: Anion Gap 5.9 mEq/L (5.0-15.0); Potassium 3.9 mEq/L (3.5-5.1); Troponin High Sensitivity 3.3 pg/mL (<58.9)
[2023-11-30 23:54] LABS: Specific Gravity > 1.030 (1.005-1.030); Sqamous Epithelial <5 /HPF (None Seen); Urine Bacteria None Seen /HPF (<20); Urine Bilirubin NEGATIVE (Negative); Urine Blood Trace (Negative); Urine Clarity Clear (Clear); Urine Color Colorless (Yellow); Urine Culture Reflex Order NOT NEEDED; Urine Glucose NEGATIVE (Negative); Urine Ketones NEGATIVE (Negative); Urine Micro Reflex YN NO BILL MICROSCOPIC; Urine Mucus Slight /HPF (None Seen); Urine Nitrite NEGATIVE (Negative); Urine Protein NEGATIVE (Negative); Urine RBC <5 /HPF (None Seen); Urine Urobilinogen Normal (Normal); Urine WBC <5 /HPF (<5); Urine pH 5.5 (5.0-7.0)
--- NOTE | 2023-12-01 00:05 | EDPHYS ---
Physician Documentation [facility] Name: Marie Kearns Age: 48 yrs Sex: Female : 1975 Arrival Date: 11/30/2023 Time: 21:04 Bed 19 Private MD: ED Physician Mic Villalpando HPI: 11/29 21:44 This 48 yrs old Black Female presents to ER via Ambulatory with complaints of ec2 dizziness, L eye pain and CAIN, L body pain. 21:44 Patient arrives today for evaluation of 2 months of dizziness. Patient reports that she ec2 feels some instability on her feet. Patient reports that she is also had some left head pain as well as left eye pain. Also complaining of left shoulder pain and generalized weakness. No recent falls injuries or trauma, history of bipolar disease, on Abilify. Patient reports otherwise no bouts of nausea, vomiting or diarrhea. No recent infectious symptoms. No cough and cold symptoms.. LIVE IN COMPANION: 23:30 unknown cp4 Historical: - Allergies: 21:34 PENICILLINS; tl4 21:34 Tylenol-Codeine #3; tl4 - Home Meds: 21:34 Clonazepam Oral [Active]; Lamictal Oral [Active]; Abilify oral [Active]; Prozac Oral tl4 [Active]; - PMHx: 21:34 Arthritis; Asthma; Bipolar disorder; tl4 - PSHx: 21:34 Ligation of fallopian tube; tl4 - Immunization history:: Adult Immunizations unknown. - Infectious Disease History:: Denies. - Social history:: Smoking status: Patient reports the use of cigarette tobacco products, smokes one-half pack cigarettes per day. ROS: 21:44 Constitutional: as per hpi ec2 Exam: 21:44 Constitutional: GEN: NAD Head: atraumatic Eyes: EOMI Ears: External ears are ec2 normal. CV: regular rate LUNGS: no respiratory distress ABD: non-distended SKIN: no evidence of rashes MSK: no evidence of trauma. Neuro: Cranial nerves II through XII intact, strength intact all 4 extremities, no pronator drift, normal [id number], negative Romberg Vital Signs: 21:28 BP 136 / 81; Pulse 74; Resp 18; Temp 98.7(O); Pulse Ox 100% on R/A; Weight 85.73 kg; tl4 Height 5 ft. 5 in. ; Pain 7/10; 22:30 BP 145 / 102; Pulse 92; Resp 18; Pulse Ox 99% ; cp4 23:30 BP 127 / 80; Pulse 80; Resp 18; Pulse Ox 99% ; cp4 21:28 Body Mass Index 31.45 (85.73 kg, 165.1 cm) tl4 21:28 Pain Scale: Adult tl4 MDM: 21:44 Data reviewed: vital signs. ED course: Patient arrives today for evaluation of ec2 dizziness. Examination remarkable for well-appearing nontoxic individual is otherwise in no acute distress with a reassuring examination and an intact neurologic examination. Will obtain lab work, CT scan of the head, CT angio head and neck. Differential includes intracranial masses, electrolyte disturbances, urinary tract infection. 21:48 Patient medically screened. ec2 22:21 ED course: EKG independently reviewed and interpreted by me, shows normal sinus rhythm, ec2 rate of 75, no acute ST segment elevations, intervals are nonconcerning. . 23:14 ED course: Metabolic profile reassuring, CBC reassuring, troponin within normal ranges. ec2 Pending urine studies, CT imaging. . 23:53 ED course: CT angio of the head and neck showed no acute process. . ec2 23:55 ED course: CT scan of the head shows no acute intracranial process.. ec2 11/30 00:04 ED course: On reassessment patient as well as appearing and in no acute distress, ec2 remains with an intact neurologic exam, no active symptoms, lower suspicion for stroke, will treat for vertigo and have the patient follow-up with neurology. Return precautions given.. 11/29 21:44 Order name: Basic Metabolic Panel; Complete Time: 23:14 ec2 11/29 21:44 Order name: CBC with Diff; Complete Time: 23:14 ec2 11/29 21:44 Order name: PT-INR; Complete Time: 23:14 ec2 11/29 21:44 Order name: Troponin HS; Complete Time: 23:14 ec2 11/29 21:47 Order name: UAM; Complete Time: 23:55 ec2 11/29 23:59 Order name: CREATININE WHOLE BLOOD; Complete Time: 00:01 EDMS 11/29 21:44 Order name: CT Head Brain wo Cont ec2 11/29 21:44 Order name: CT Neck Angio ec2 11/29 22:07 Order name: Head angio EDMS 11/29 21:44 Order name: EKG; Complete Time: 21:45 ec2 11/29 21:44 Order name: Cardiac monitoring; Complete Time: 22:18 ec2 11/29 21:44 Order name: EKG - Nurse/Tech; Complete Time: 22:18 ec2 11/29 21:44 Order name: IV Saline Lock; Complete Time: 22:51 ec2 11/29 21:44 Order name: Labs collected and sent; Complete Time: 22:51 ec2 11/29 21:44 Order name: O2 Per Protocol; Complete Time: 22:18 ec2 11/29 21:44 Order name: O2 Sat Monitoring; Complete Time: 22:18 ec2 Administered Medications: No medications were administered Disposition Summary: 12/01/23 00:05 Discharge Ordered Notes: Location: Home ec2 Condition: Stable ec2 Diagnosis - Dizziness and giddiness ec2 Followup: ec2 - With: Private Physician - When: - Reason: Re-evaluation by your physician Followup: ec2 - With: Moses Dowd MD - When: - Reason: Recheck today's complaints Discharge Instructions: - Discharge Summary Sheet ec2 - Dizziness, [id number] ec2 Forms: - Medication Reconciliation Form ec2 - Antibiotic Education ec2 - Prescription Opioid Use ec2 - Patient Portal Instructions ec2 - Leadership Thank You Letter ec2 - Work release form vk Prescriptions: - Meclizine 25 mg Oral Tablet - take 1 tablet ORAL route every 8 hours As needed; 30 tablet; Refills: 0, ec2 Product Selection Permitted Signatures: Dispatcher [employer] Mic Figueroa MD MD ec2 Adriano Bui RN RN tl4 Corrections: (The following items were deleted from the chart) 11/29 21:43 21:34 Home Meds: Risperdal Oral; tl4 tl4 11/30 00:00 11/29 23:14 Walls ordered. ec2 cp4
--- NOTE | 2023-12-01 00:05 | ER ---
Nurse's Notes [facility] Name: Marie Kearns Age: 48 yrs Sex: Female : 1975 Arrival Date: 11/30/2023 Time: 21:04 Bed 19 Private MD: Diagnosis: Dizziness and giddiness Presentation: 11/29 21:28 Chief complaint: Patient states: Pt states she has been 'off balance' x 2 months that tl4 got worse tonight. Pt also c/o left shoulder, rib, hip and leg pain x 2 weeks. Pt also states she is confused. Pt states she did not know how to stand up and filled out her paperwork backwards. Pt states her vision has been 'messing up for weeks' describing it as blurry. Coronavirus screen: At this time, the client does not indicate any symptoms associated with coronavirus-19. Ebola Screen: No symptoms or risks identified at this time. Initial Sepsis Screen: Does the patient meet any 2 criteria? No. Patient's initial sepsis screen is negative. Does the patient have a suspected source of infection? No. Patient's initial sepsis screen is negative. Risk Assessment: Do you want to hurt yourself or someone else? Patient reports no desire to harm self or others. Onset of symptoms is unknown. 21:28 Method Of Arrival: Ambulatory tl4 21:28 Acuity: JESSICA 3 tl4 Triage Assessment: 21:36 Headache History: Denies prior headaches. General: Appears in no apparent distress. tl4 Behavior is calm, cooperative. Pain: Complains of pain in left lateral posterior chest, left lateral anterior chest, left arm and left leg Pain currently is 7 out of 10 on a pain scale. Pain began gradually, Also complains of no other associated symptoms. EENT: No signs and/or symptoms were reported regarding the EENT system. Neuro: Level of Consciousness is awake, alert, obeys commands, Oriented to person, place, time, situation, Telecom Coordinator are equal bilaterally Moves all extremities. Full function Gait is steady, Speech is normal, Facial symmetry appears normal, Reports blurred vision balance issue. Cardiovascular: Capillary refill < 3 seconds Patient's skin is warm and dry. Respiratory: Airway is patent Respiratory effort is even, unlabored, Respiratory pattern is regular, symmetrical. GI: No signs and/or symptoms were reported involving the gastrointestinal system. : No signs and/or symptoms were reported regarding the genitourinary system. Derm: No signs and/or symptoms reported regarding the dermatologic system. Musculoskeletal: No signs and/or symptoms reported regarding the musculoskeletal system. 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 - Infectious Disease History:: Denies. - Social history:: Smoking status: Patient reports the use of cigarette tobacco products, smokes one-half pack cigarettes per day. Screenin:20 [facility] ED Fall Risk Assessment (Adult) History of falling in the last 3 months, cp4 including since admission No falls in past 3 months (0 pts) Confusion or Disorientation No (0 pts) Intoxicated or Sedated No (0 pts) Impaired Gait No (0 pts) Mobility Assist Device Used No (0 pt) Altered Elimination No (0 pt) Score/Fall Risk Level 0 - 2 = Low Risk Oriented to surroundings, Maintained a safe environment, Assessed \T\ reinforced patient's understanding of fall precautions, Hourly rounding (assess needs \T\ fall precautionary measures) done. Abuse screen: Denies threats or abuse. Nutritional screening: No deficits noted. Tuberculosis screening: No symptoms or risk factors identified. Assessment: 22:20 General: Appears uncomfortable, Behavior is calm, cooperative, appropriate for age. cp4 22:20 Pain: Complains of pain in left leg and left arm and chest and left lateral anterior cp4 chest and left lateral posterior chest. Neuro: Level of Consciousness is awake, alert, obeys commands, Oriented to person, place, time, situation. Cardiovascular: No deficits noted. Respiratory: Airway is patent Respiratory effort is even, unlabored. GI: No signs and/or symptoms were reported involving the gastrointestinal system. : No signs and/or symptoms were reported regarding the genitourinary system. EENT: No signs and/or symptoms were reported regarding the EENT system. Derm: No signs and/or symptoms reported regarding the dermatologic system. Musculoskeletal: No signs and/or symptoms reported regarding the musculoskeletal system. Vital Signs: 21:28 BP 136 / 81; Pulse 74; Resp 18; Temp 98.7(O); Pulse Ox 100% on R/A; Weight 85.73 kg; tl4 Height 5 ft. 5 in. ; Pain 7/10; 22:30 BP 145 / 102; Pulse 92; Resp 18; Pulse Ox 99% ; cp4 23:30 BP 127 / 80; Pulse 80; Resp 18; Pulse Ox 99% ; cp4 21:28 Body Mass Index 31.45 (85.73 kg, 165.1 cm) tl4 21:28 Pain Scale: Adult tl4 ED Course: 21:06 Patient arrived in ED. jj6 21:20 Mic Villalpando MD is Attending Physician. ec2 21:34 Triage completed. tl4 21:38 Arm band placed on left wrist. tl4 22:18 Prudence Bills is Primary Nurse. cp4 22:20 Bed in low position. Call light in reach. Side rails up X2. cp4 22:21 EKG done, by ED staff. af3 22:46 Initial lab(s) drawn, by me, sent to lab. Inserted saline lock: 22 gauge in left cp4 antecubital area, using aseptic technique. Blood collected. Flushed with 10 mL NS. 22:54 CT Head Brain wo Cont In Process Unspecified. EDMS 22:55 CT Neck Angio In Process Unspecified. EDMS 22:56 Head angio In Process Unspecified. EDMS 11/30 00:05 Moses Dowd MD is Referral Physician. ec2 00:20 Provided Education on: dizziness. cp4 00:20 No provider procedures requiring assistance completed. intact, bleeding controlled, No cp4 redness/swelling at site. Pressure dressing applied. Administered Medications: No medications were administered Medication: 11/29 22:20 VIS not applicable for this client. cp4 Outcome: 11/30 00:05 Discharge ordered by . ec2 00:20 Discharged to home ambulatory, cp4 00:20 Condition: stable 00:20 Discharge instructions given to patient, Instructed on discharge instructions, follow up and referral plans. medication usage, Demonstrated understanding of instructions, follow-up care, medications, Prescriptions given X 1, 00:21 Patient left the ED. cp4 Signatures: Dispatcher [employer] EDDalila Victor jj6 Mic Villalpando MD MD ec2 Prudence Bills cp4 Adriano Bui RN RN tl4 Belkys John3 Corrections: (The following items were deleted from the chart) 11/29 21:43 21:34 Home Meds: Risperdal Oral; tl4 tl4
[2023-12-01 01:11] VITALS: TEMP 98.7
[2023-12-01 01:13] VITALS: BP 127/80; O2SAT 99
--- NOTE | 2023-12-01 16:36 | RAD REPORT ---
EXAM DESCRIPTION: CT - Head Brain Wo Cont - 11/30/2023 10:52 pm CLINICAL HISTORY: 48 years, Female, Dizziness. COMPARISON: None. FINDINGS: Multiple transaxial tomograms of the brain were obtained from the base of the skull to the vertex without contrast. An individualized dose optimization technique, Automated Exposure Control, was utilized for the perfo rmed procedure. Brain: Brain parenchyma as well as the restrepo-white matter differentiation demonstrate to be within nor mal limits. There is no evidence for acute intraparenchymal hemorrhage. There is no midline shifts an d/or mass effect. No focal areas of hypodensities. Ventricles: Lateral ventricles and cisterns displace normal appearance. Vasculature: No visualized abnormalities in the arteries or dural venous sinuses. Scalp/skull: The calvarium demonstrate to be intact with no evidence for acute bony injuries. Sinuses: The visualized paranasal sinuses and mastoid air cells demonstrate to be clear. Orbits: No significant abnormalities in the visualized orbital structures. IMPRESSION: No acute intracranial hemorrhage. Unremarkable CT scan of the head without contrast. Electronically signed by: Servando Turpin MD 11/30/2023 11:52 PM CDT Due to temporary technical issues with the PACS/Fluency reporting system, reports are being signed by the in house radiologists without review as a courtesy to insure prompt reporting. The interpreting radiologist is fully responsible for the content of the report.
--- NOTE | 2023-12-01 17:12 | RAD REPORT ---
EXAM DESCRIPTION: CT - Neck Angio - 11/30/2023 10:53 pm CLINICAL HISTORY: Dizzines COMPARISON: Correlation made with noncontrast CT of the head TECHNIQUE: Contiguous axial images obtained through the head and neck following the uneventful admin istration of IV contrast. Sagittal and coronal reformatted images were provided. Multiplanar 3-D MIP reformatted images were provided. NASCET criteria utilized for the evaluation of any stenotic lesions . This exam was performed according to our departmental dose-optimization program, which includes autom ated exposure control, adjustment of the mA and/or kV according to patient size and/or use of iterati ve reconstruction technique. FINDINGS: Head: ICA: Patent intracranial internal carotid artery. VLADIMIR: Patent anterior cerebral arteries. MCA: Patent middle cerebral arteries. SURGICAL NURSE PRACTITIONER: Patent posterior cerebral arteries. Basilar artery: Patent. Neck: ICA: No significant stenosis or occlusion. ECA: No significant stenosis or occlusion. CCA: The origin of the common carotid arteries is not included on the images obtained Aortic arch: The aortic arch was not included on the images obtained. Vertebral arteries: No significant stenosis or occlusion. Brain: No focal mass effect. No areas of abnormal parenchymal enhancement. Bones: Unremarkable Soft tissues: Unremarkable IMPRESSION: 1. No significant stenosis or occlusion of the cervical or intracranial arterial vascu lature. No evidence of intracranial aneurysm. 2. The origin of the common carotid arteries and aortic arch are not included on the images obtaine d Electronically signed by: Simone Javier MD 11/30/2023 11:46 PM CDT RP Due to temporary technical issues with the PACS/Fluency reporting system, reports are being signed by the in house radiologists without review as a courtesy to insure prompt reporting. The interpreting radiologist is fully responsible for the content of the report.
--- NOTE | 2023-12-01 17:15 | RAD REPORT ---
EXAM DESCRIPTION: CT - Head angio - 11/30/2023 10:54 pm CLINICAL HISTORY: Dizzines COMPARISON: Correlation made with noncontrast CT of the head TECHNIQUE: Contiguous axial images obtained through the head and neck following the uneventful admin istration of IV contrast. Sagittal and coronal reformatted images were provided. Multiplanar 3-D MIP reformatted images were provided. NASCET criteria utilized for the evaluation of any stenotic lesions . This exam was performed according to our departmental dose-optimization program, which includes autom ated exposure control, adjustment of the mA and/or kV according to patient size and/or use of iterati ve reconstruction technique. FINDINGS: Head: ICA: Patent intracranial internal carotid artery. VLADIMIR: Patent anterior cerebral arteries. MCA: Patent middle cerebral arteries. SR TECHNICAL SALES CONSULTANT: Patent posterior cerebral arteries. Basilar artery: Patent. Neck: ICA: No significant stenosis or occlusion. ECA: No significant stenosis or occlusion. CCA: The origin of the common carotid arteries is not included on the images obtained Aortic arch: The aortic arch was not included on the images obtained. Vertebral arteries: No significant stenosis or occlusion. Brain: No focal mass effect. No areas of abnormal parenchymal enhancement. Bones: Unremarkable Soft tissues: Unremarkable IMPRESSION: 1. No significant stenosis or occlusion of the cervical or intracranial arterial vascu lature. No evidence of intracranial aneurysm. 2. The origin of the common carotid arteries and aortic arch are not included on the images obtaine d Electronically signed by: Simone Javier MD 11/30/2023 11:46 PM CDT RP Due to temporary technical issues with the PACS/Fluency reporting system, reports are being signed by the in house radiologists without review as a courtesy to insure prompt reporting. The interpreting radiologist is fully responsible for the content of the report.
--- OUTSIDE RECORDS SUMMARY | 2023-12-03 08:58 | XMS REPORT | Continuity of Care Document ---
Author Name Unknown Address [address] [place] [address] [facility] thconnect Address 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 Name Role Phone ARPITA ROSE Primary Care Physician Unavailab Zuniga, JOSSELIN Attending Clinician Unavailable YUMIKO TINOCO Attending Clinician Unavailable Yumiko Tinoco DO Attending Clinician [phone] Doctor Unassigned, [place] Attending Clinician U Jhony Smith MD Attending Clinician [phone] JHONY ROTHMAN Attending Clinician PARIS Kong Attending Clinician Unavailable Paris Cordova MD Attending Clinician [phone] LISA PARRA Attending Clinician [place], [facility] Attending Clinician Thao Montemayor MD Attending Clinician [phone] THAO SANDERS Attending Clinician Lisa Barry MD Attending Clinician [phone] TIMBO GARCIA Attending Clinician UnavailRADHA Hidalgo Attending Clinician Unavailable PARIS CORDOVA Admitting Clinician Unavailable Payers Payer Name Policy Type Policy Number Effective Date Expirati on Date Source [employer] [id number] [facility] COMMERCIAL NON-CONTRACT GENERIC [id number] 2023 00:00:00 2023 00:00:00 [facility] [id number] 2020 00:00:00 ALLIED BENEFIT [id number] 2016 00:00:00 Problems Condition Name Condition Details Condition Category Status Onset Date Resolution Date Last Treatment Date Treating Clinician Comments Source Bipolar 1 disorder Bipolar 1 disorder Disease Active [facility] Allergies, Adverse Reactions, Alerts Allergy Name Allergy Type Status Severity Reaction(s) Onset Date Inactive Date Treating Clinician Comments Source CODEINE DRUG INGREDI Active Unknown-Cmnt 07-24 00:00: 00 [facility] PENICILL IN DRUG INGREDI Active Unknown-Cmnt 07-24 00:00: 00 [facility] Penicill in Propensi ty to adverse reaction s Active Unknown - See comments 07-24 00:00: 00 [facility] Penicill ins Propensi ty to adverse reaction s Active Rash 10-19 00:00: 00 [facility] PENICILL INS Drug Class Active Rash 10-19 00:00: 00 [facility] Penicill ins Propensi ty to adverse reaction s Active Rash 10-19 00:00: 00 [facility] [id number] Drug allergy Active Unknown [facility] Social History Social Habit Start Date Stop Date Quantity Comments Source History of Tobacco Use [facility] Sex Assigned At [facility] to SARS-CoV-2 (event) 2021-09-13 00:00:00 2021-09-23 10:48:00 Not sure [facility] History of Social function 2021-09-23 00:00:00 2021-09-23 00:00:00 [facility] Tobacco use and exposure 2017-03-15 00:00:00 2017-03-15 00:00:00 Smokeless tobacco non-user [facility] Smoking Status Start Date Stop Date Source Tobacco smoking consumption unknown [facility] Never Smoker [facility] Smokes tobacco daily 2017-03-15 00:00:00 [facility] Medications Ordered Medication Name Filled Medication Name Start Date Stop Date Current Medication? Ordering Clinician Indication Dosage Frequency Signature (SIG) Comments Components Source PROzac 10 MG PROzac 10 MG -23 00:00: 00 No 1{capsu le} QD PROzac 10 MG proCHLORper azine (COMPAZINE) injection 5 mg - 00:00: 00 05-17 23:25 :00 No 5mg 5 mg, Slow IV Push, ONCE, 1 dose, On Coreen 05/17/23 at 1800, CAMILO [facility] diphenhydrA MINE (BENADRYL) injection 25 mg 05-17 23:15: 00 05-17 23:25 :00 No 25mg 25 mg, Slow IV Push, ONCE, 1 dose, On Coreen 05/17/23 at 1715, STAT [facility] risperiDONE (RISPERDAL) 4 mg tablet 05-17 19:32: 51 05-17 00:00 :00 No 4mg Take 4 mg by mouth at bedtime. [facility] lamoTRIgine (LAMICTAL) 200 mg tablet 05-17 19:32: 51 05-17 00:00 :00 No 200mg Take 200 mg by mouth 2 (two) times daily. [facility] hydrOXYzine (ATARAX) 50 mg tablet 05-17 18:52: 33 05-17 00:00 :00 No 50mg Take 50 mg by mouth 3 (three) times daily as needed for Itching. [facility] lamoTRIgine 200 mg tablet 05-17 00:00: 00 05-17 00:00 :00 No [id number] 200mg Take 1 tablet by mouth in the morning and 1 tablet in the evening. [facility] risperiDONE (RISPERDAL) 4 mg tablet 05-17 00:00: 00 05-17 00:00 :00 No [id number] 4mg Take 1 tablet by mouth at bedtime. [facility] cyclobenzap rine 10 mg tablet 09-23 00:00: 00 Yes 10mg Take 1 tablet by mouth 3 (three) times daily. [facility] methylPREDN ISolone (METHYLPRED DP) 4 mg tablets 09-23 00:00: 00 Yes Take by mouth SEE-INSTRU CTIONS. follow package directions [facility] permethrin 5 % cream 05-02 00:00: 00 Yes [id number] Thoroughly massage cream from head to soles of feet; leave on for 8 to 14 hours, then shower or bathe. [facility] diclofenac 75 mg EC tablet 07-24 00:00: 00 Yes [id number] 75mg Take 1 tablet by mouth 2 (two) times daily with meals. [facility] traMADol 100 mg 24 hr tablet 06-27 00:00: 00 Yes TK 1 T PO D. [facility] lamoTRIgine 200 mg tablet 06-20 00:00: 00 05-17 00:00 :00 No TK 1 T PO BID. [facility] gabapentin 300 mg capsule 05-16 00:00: 00 Yes TK 1 C PO BID [facility] risperiDONE (RISPERDAL) 4 mg tablet 2016-04 15:12: 02 Yes 4mg Take 4 mg by mouth at bedtime. [facility] lamoTRIgine (LAMICTAL) 200 mg tablet 2016-04 15:12: 02 Yes 200mg Take 200 mg by mouth 2 (two) times daily. [facility] hydrOXYzine (ATARAX) 50 mg tablet 2016-04 15:12: 02 Yes 50mg Take 50 mg by mouth 3 (three) times daily as needed for Itching. [facility] TRAZODONE HCL (TRAZODONE ORAL) 2016-04 15:12: 02 Yes Take by mouth. [facility] gabapentin 300 mg capsule 2016-04 00:00: 00 Yes [facility] meloxicam 7.5 mg tablet 2016-04 00:00: 00 Yes [facility] LaMICtal 25 MG LaMICtal 25 MG No 1{table t} LaMICtal 25 MG Clorazepate Dipotassium 15 MG Clorazepate Dipotassium 15 MG No 1{table t} QD Clorazepat e Dipotassiu m 15 MG hydrOXYzine Pamoate 50 MG hydrOXYzine Pamoate 50 MG No hydrOXYzin e Pamoate 50 MG Vital Signs Vital Name Observation Time Observation Value Comments S jillian Systolic blood pressure 2023-05-18 01:05:29 115 mm[Hg] [facility] Diastolic blood pressure 2023-05-18 01:05:29 81 mm[Hg] [facility] Heart rate 2023-05-18 01:05:29 60 /min [facility] Respiratory rate 2023-05-18 01:05:29 18 /min [facility] Oxygen saturation in Arterial blood by Pulse oximetry 2023-05-18 01:05:29 96 /min [facility] Body temperature 2023-05-17 21:35:00 36.89 Sarah [facility] Body height 2023-05-17 21:35:00 162.6 cm [facility] Body weight 2023-05-17 21:35:00 83.008 kg [facility] BMI 2023-05-17 21:35:00 31.41 kg/m2 [facility] Systolic blood pressure 2021-09-23 15:50:00 115 mm[Hg] [facility] Diastolic blood pressure 2021-09-23 15:50:00 68 mm[Hg] [facility] Body height 2021-09-23 15:50:00 162.6 cm [facility] Body weight 2021-09-23 15:50:00 82.555 kg [facility] BMI 2021-09-23 15:50:00 31.24 kg/m2 [facility] Procedures Procedure Date / Time Performed Performing Clinicia n Source COMP. METABOLIC PANEL (34472) 2023-05-17 23:28:00 Tinoco, [facility] CBC WITH DIFF 2023-05-17 23:28:00 TinocoYumiko [facility] ASSIGNMENT OF BENEFITS 2023-05-17 22:15:36 Docto r Unassigned, [place] [facility] CONSENT/REFUSAL FOR DIAGNOSIS AND TREATMENT 2023-05-17 21:31:52 Doctor Unassigned, [place] [facility] REFERRAL- REQUEST/RESPONSE 2021-10-03 05:01:00 Doctor Unassigned, [place] [facility] Encounters Start Date/Time End Date/Time Encounter Type Admission Type Attending [facility] Care Facility Care Department Encounter ID Source 2023-10-12 08:05:00 Outpatient No, PCP CLS CLS [id number] [facility] 2021-02-12 17:48:15 Emergency [facility] [id number] [facility] 2023-10-12 00:00:00 2023-10-12 00:00:00 Office Visit- Est Pt.- Level 3 [facility] [id number] [facility] 2023-05-17 15:59:00 2023-05-17 19:44:00 Emergency X YUMIKO TINOCO [facility] ERT [id number] [facility] 2023-05-17 15:59:00 2023-05-17 19:44:00 Emergency Yumiko Tinoco [facility] 1..114 350.1.13.10 4.2.7.2.686 [id number] [facility] 2021-10-03 00:00:00 2021-10-03 00:00:00 Orders Only Doctor Unassigned, [place] [facility] 1..114 350.1.13.10 4.2.7.2.686 [id number] [facility] 2021-09-27 00:00:00 2021-09-27 00:00:00 Telephone Jhony Rothman [facility] 1..114 350.1.13.10 4.2.7.2.686 [id number] [facility] 2021-09-23 11:00:00 2021-09-23 11:05:47 Outpatient R JHONY ROTHMAN [facility] [id number] [facility] 2021-09-23 11:00:00 2021-09-23 11:05:47 Office Visit Jhony Rothman Kassy [facility] 1..840.114 350.1.13.10 4.2.7.2.686 [id number] [facility] 2021-09-21 19:12:00 2021-09-21 23:04:00 Emergency X EMILY CORDOVAROB [facility] ERT [id number] [facility] 2021-09-21 19:12:00 2021-09-21 23:04:00 Emergency Paris Cordova Maricruz [facility] 1..840.114 350.1.13.10 4.2.7.2.686 [id number] [facility] 2021-09-21 19:12:00 2021-09-21 23:04:00 Emergency X PARIS CORDOVA [facility] ERT [id number] [facility] 2020-08-18 00:00:00 2020-08-18 00:00:00 Outpatient LISA HUNTLEY [facility] [id number] [facility] 2020-08-16 16:08:40 2020-08-16 16:23:40 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, [facility] Thao Sanders [facility] 1.2.840.114 350.1.13.10 4.2.7.2.686 [id number] [facility] 2020-08-16 16:15:00 2020-08-16 16:15:00 Outpatient THAO VILLAREAL [facility] [id number] [facility] 2020-08-16 00:00:00 2020-08-16 00:00:00 Orders Only Doctor Unassigned, [place] [facility] 1.2.840.114 350.1.13.10 4.2.7.2.686 [id number] [facility] 2020-07-05 10:58:58 2020-07-05 23:59:00 Hospital Encounter Jorgejorge luis [facility] 1.2.840.114 350.1.13.10 4.2.7.2.686 [id number] [facility] 2020-07-05 12:00:00 2020-07-05 12:00:00 Outpatient R ANIKA [facility] [id number] [facility] 2020-07-05 10:55:38 2020-07-05 11:10:38 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, [facility] Main Anika [facility] Professio [facility] Building 1.2840.114 350.1.13.10 4.2.7.2.686 [id number] [facility] 2020-07-05 00:00:00 2020-07-05 00:00:00 Orders Only Doctor Unassigned, [place] [facility] 1.2840.114 350.1.13.10 4.2.7.2.686 [id number] [facility] 2020-05-02 17:43:00 2020-05-02 19:32:00 Emergency X TIMBO GARCIA [facility] ERT [id number] [facility] 2019-10-22 00:00:00 2019-10-22 00:00:00 Patient Secure Msg Doctor Unassigned, [place] [facility] 1.2840.114 350.1.13.10 4.2.7.2.686 [id number] [facility] 2019-10-21 09:00:00 2019-10-21 09:00:00 Outpatient RADHA PRATT [facility] [id number] [facility] 2019-10-21 08:00:00 2019-10-21 08:00:00 Outpatient R [facility] [id number] [facility] 2017-03-27 16:00:00 2017-03-27 16:00:00 Outpatient JHONY MCCRACKEN [facility] RAD [id number] [facility] Results Test Description Test Time Test Comments Results Result Co mments Source [facility] (16344)2023-05-18 00:47:38* Test Item Value Reference Range Interpretation Comme nts NA (test code = 1550263016) 138 mmol/L 135-145 K (test code = 1922139242) 4.3 mmol/L 3.5-5.0 CL (test code = 1937970358) 107 mmol/L 98-108 CO2 TOTAL (test code = 7672282162) 24 mmol/L 23-31 AGAP (test code = 6668522326) 7 2-16 BUN (test code = 4895429084) 12 mg/dL 7-23 GLUCOSE (test code = 9979101849) 77 mg/dL 70-110 CREATININE (test code = 2809486058) 0.54 mg/dL 0.50-1.04 TOTAL BILI (test code = 1649280821) 0.6 mg/dL 0.1-1.1 CALCIUM (test code = 8222985577) 9.2 mg/dL 8.6-10.6 T PROTEIN (test code = 6735947004) 8.2 g/dL 6.3-8.2 ALBUMIN (test code = 0477385915) 4.5 g/dL 3.5-5.0 ALK PHOS (test code = 3978882020) 74 U/L 34-122 ALTv (test code = 1742-6) 14 U/L 5-35 AST(SGOT) (test code = 4491060435) 30 U/L 13-40 eGFR (test code = 84643-3) 114.4 mL/min/1.73m2 CKD-EPI eGFR (20 21). Assuming creatinine has been stable day-to-day for at least three months, the eGFR indicates Category G1 (>= 90 mL/min/1.73 m2) [facility] Notes Date/Time Note Provider Source 2023-05-17 19:12:23 PT D/C home. GCS15, VS stable. Given D/C paperwork. Pt ambulatory at time of discharge. Pt educated on med usage, follow up care, s/s worsening condition, need for hydration. Pt verbalized understanding. Pt ambulated from ED in NAD. ANDRA Senior RN [facility] 2023-05-17 15:45:00 Patient states: "I've been checking my blood [...] arm and legs, can't explain the feeling." ANDRA Posada RN [facility]
--- NOTE | 2023-12-04 17:57 | EKG ---
Test Date: 2023-11-30 Test Time: 22:19:50 Site Monitor: AF MEASUREMENT RESULTS: Intervals: Rate: 75 VT: 124 QRSD: 72 QT: 396 QTc: 442 Sultana: P: 35 VT: 124 QRS: 79 T: 63 INTERPRETIVE STATEMENTS: Normal sinus rhythm Cannot rule out Anterior infarct, age undetermined Abnormal ECG Compared to ECG 07/18/2023 15:53:18 Myocardial infarct finding now present Sinus bradycardia no longer present Electronically Signed On 12-04-23 17:49:31 CDT by Sami Langley
== END 2023-12-01 00:21 | disposition home or self-care (01) ==
LOC: ER 21:04
DX: R42 Dizziness and giddiness (principal); R51.9 Headache, unspecified; H57.12 Ocular pain, left eye; M25.512 Pain in left shoulder; R53.1 Weakness
CPT/HCPCS: 85025; 81001; 80048; 36415; 85610; 82565; 84484; 70450; 70496; 70498; 99284; Q9967; 93005

== ENCOUNTER 2024-03-29 17:42 | Emergency (ER) | payer OTHER ==
--- OUTSIDE RECORDS SUMMARY | 2024-03-29 17:45 | XMS REPORT | Continuity of Care Document ---
Author Name Unknown Address [address] [place] [address] [facility] thconnect Address [address] [place] [address] Care Team Providers Care Lode Miner Name Role Phone ROSEPEPITOARPITA A Primary Care Physician UnavailJOSSELIN Montemayor Attending Clinician Unavailable YUMIKO TINOCO Attending Clinician Unavailable Yumiko Tinoco DO Attending Clinician [phone] Doctor Unassigned, [place] Attending Clinician U Jhony Smith MD Attending Clinician [phone] JHONY ROTHMAN Attending Clinician PARIS Kong Attending Clinician Unavailable Paris Cordova MD Attending Clinician [phone] LISA PARRA Attending Clinician [place], [facility] Attending Clinician Thao Montemayor MD Attending Clinician [phone] THAO SANDERS Attending Clinician Lisa Barry MD Attending Clinician [phone] TIMBO GARCIA Attending Clinician UnavailRADHA Hidalgo Attending Clinician Unavailable YARIMA, WAKILI S Admitting Clinician Unavailable Payers Payer Name Policy Type Policy Number Effective Date Expirati on Date Source [id number] [facility] COMMERCIAL NON-CONTRACT GENERIC [id number] 2023 00:00:00 2023 00:00:00 [facility] [id number] 2020 00:00:00 ALLIED BENEFIT [id number] 2016 00:00:00 Problems Condition Name Condition Details Condition Category Status Onset Date Resolution Date Last Treatment Date Treating Clinician Comments Source Bipolar 1 disorder Bipolar 1 disorder Disease Active [facility] Allergies, Adverse Reactions, Alerts Allergy Name Allergy Type Status Severity Reaction(s) Onset Date Inactive Date Treating Clinician Comments Source PENICILL IN DRUG INGREDI Active Unknown-Cmnt 07-24 00:00: 00 [facility] Penicill in Propensi ty to adverse reaction s Active Unknown - See comments 07-24 00:00: 00 [facility] CODEINE DRUG INGREDI Active Unknown-Cmnt 07-24 00:00: 00 [facility] Penicill ins Propensi ty to adverse reaction s Active Rash 10-19 00:00: 00 [facility] PENICILL INS Drug Class Active Rash 10-19 00:00: 00 [facility] Penicill ins Propensi ty to adverse reaction s Active Rash 10-19 00:00: 00 [facility] [id number] Drug allergy Active Unknown [facility] Social History Social Habit Start Date Stop Date Quantity Comments Source History of Tobacco Use [facility] Sex [facility] At [facility] to SARS-CoV-2 (event) 2021-09-13 00:00:00 2021-09-23 10:48:00 Not sure [facility] History of Social function 2021-09-23 00:00:00 2021-09-23 00:00:00 [facility] Tobacco use and exposure 2017-03-15 00:00:00 2017-03-15 00:00:00 Smokeless tobacco non-user [facility] Smoking Status Start Date Stop Date Source Tobacco smoking consumption unknown [facility] Never Smoker Gala méndez Smokes tobacco daily 2017-03-15 00:00:00 [facility] Medications Ordered Medication Name Filled Medication Name Start Date Stop Date Current Medication? Ordering Clinician Indication Dosage Frequency Signature (SIG) Comments Components Source PROzac 10 MG PROzac 10 MG - 00:00: 00 No 1{capsu le} QD PROzac 10 MG proCHLORper azine (COMPAZINE) injection 5 mg 05-18 00:00: 00 05-17 23:25 :00 No 5mg 5 mg, Slow IV Push, ONCE, 1 dose, On Coreen 05/17/23 at 1800, CAMILO [facility] diphenhydrA MINE (BENADRYL) injection 25 mg 05-17 23:15: 00 05-17 23:25 :00 No 25mg 25 mg, Slow IV Push, ONCE, 1 dose, On Coreen 05/17/23 at 1715, STAT [facility] risperiDONE (RISPERDAL) 4 mg tablet 05-17 19:32: 51 05-17 00:00 :00 No 4mg Take 4 mg by mouth at bedtime. [facility] lamoTRIgine (LAMICTAL) 200 mg tablet 05-17 19:32: 51 05-17 00:00 :00 No 200mg Take 200 mg by mouth 2 (two) times daily. [facility] hydrOXYzine (ATARAX) 50 mg tablet 05-17 18:52: 33 05-17 00:00 :00 No 50mg Take 50 mg by mouth 3 (three) times daily as needed for Itching. [facility] lamoTRIgine 200 mg tablet 05-17 00:00: 00 05-17 00:00 :00 No [id number] 200mg Take 1 tablet by mouth in the morning and 1 tablet in the evening. [facility] risperiDONE (RISPERDAL) 4 mg tablet 05-17 00:00: 00 05-17 00:00 :00 No [id number] 4mg Take 1 tablet by mouth at bedtime. [facility] cyclobenzap rine 10 mg tablet 09-23 00:00: 00 Yes 10mg Take 1 tablet by mouth 3 (three) times daily. [facility] methylPREDN ISolone (METHYLPRED DP) 4 mg tablets 09-23 00:00: 00 Yes Take by mouth SEE-INSTRU CTIONS. follow package directions [facility] permethrin 5 % cream 05-02 00:00: 00 Yes [id number] Thoroughly massage cream from head to soles of feet; leave on for 8 to 14 hours, then shower or bathe. [facility] diclofenac 75 mg EC tablet 07-24 00:00: 00 Yes [id number] 75mg Take 1 tablet by mouth 2 (two) times daily with meals. [facility] traMADol 100 mg 24 hr tablet 06-27 00:00: 00 Yes TK 1 T PO D. [facility] lamoTRIgine 200 mg tablet 06-20 00:00: 00 05-17 00:00 :00 No TK 1 T PO BID. [facility] gabapentin 300 mg capsule 05-16 00:00: 00 Yes TK 1 C PO BID [facility] risperiDONE (RISPERDAL) 4 mg tablet 2016-04 15:12: 02 Yes 4mg Take 4 mg by mouth at bedtime. [facility] lamoTRIgine (LAMICTAL) 200 mg tablet 2016-04 15:12: 02 Yes 200mg Take 200 mg by mouth 2 (two) times daily. [facility] hydrOXYzine (ATARAX) 50 mg tablet 2016-04 15:12: 02 Yes 50mg Take 50 mg by mouth 3 (three) times daily as needed for Itching. [facility] TRAZODONE HCL (TRAZODONE ORAL) 2016-04 15:12: 02 Yes Take by mouth. [facility] gabapentin 300 mg capsule 2016-04 00:00: 00 Yes [facility] meloxicam 7.5 mg tablet 2016-04 00:00: 00 Yes [facility] LaMICtal 25 MG LaMICtal 25 MG No 1{table t} LaMICtal 25 MG Clorazepate Dipotassium 15 MG Clorazepate Dipotassium 15 MG No 1{table t} QD Clorazepat e Dipotassiu m 15 MG hydrOXYzine Pamoate 50 MG hydrOXYzine Pamoate 50 MG No hydrOXYzin e Pamoate 50 MG Vital Signs Vital Name Observation Time Observation Value Comments Maricruz walsh Systolic blood pressure 2023-05-18 01:05:29 115 mm[Hg] [facility] Diastolic blood pressure 2023-05-18 01:05:29 81 mm[Hg] [facility] Heart rate 2023-05-18 01:05:29 60 /min [facility] Respiratory rate 2023-05-18 01:05:29 18 /min [facility] Oxygen saturation in Arterial blood by Pulse oximetry 2023-05-18 01:05:29 96 /min [facility] Body temperature 2023-05-17 21:35:00 36.89 Sarah [facility] Body height 2023-05-17 21:35:00 162.6 cm [facility] Body weight 2023-05-17 21:35:00 83.008 kg [facility] BMI 2023-05-17 21:35:00 31.41 kg/m2 [facility] Systolic blood pressure 2021-09-23 15:50:00 115 mm[Hg] [facility] Diastolic blood pressure 2021-09-23 15:50:00 68 mm[Hg] [facility] Body height 2021-09-23 15:50:00 162.6 cm [facility] Body weight 2021-09-23 15:50:00 82.555 kg [facility] BMI 2021-09-23 15:50:00 31.24 kg/m2 [facility] Procedures Procedure Date / Time Performed Performing Clinicia n Source COMP. METABOLIC PANEL (91683) 2023-05-17 23:28:00 Yumiko Tinoco [facility] CBC WITH DIFF 2023-05-17 23:28:00 Yumiko Tinoco [facility] ASSIGNMENT OF BENEFITS 2023-05-17 22:15:36 Docto r Unassigned, [place] [facility] CONSENT/REFUSAL FOR DIAGNOSIS AND TREATMENT 2023-05-17 21:31:52 Doctor Unassigned, [place] [facility] REFERRAL- REQUEST/RESPONSE 2021-10-03 05:01:00 Doctor Unassigned, [place] [facility] Encounters Start Date/Time End Date/Time Encounter Type Admission Type Attending [facility] Facility Care Department Encounter ID Source 2023-10-12 08:05:00 Outpatient No, PCP CLS CLS [id number] [facility] 2021-02-12 17:48:15 Emergency [facility] [id number] [facility] 2023-10-12 00:00:00 2023-10-12 00:00:00 Office Visit- Est Pt.- Level 3 [facility] [id number] [facility] 2023-05-17 15:59:00 2023-05-17 19:44:00 Emergency X RIGOBERTO TINOCOIP [facility] ERT [id number] [facility] 2023-05-17 15:59:00 2023-05-17 19:44:00 Emergency Yumiko Tinoco [facility] 1..114 350.1.13.10 4.2.7.2.686 [id number] [facility] 2021-10-03 00:00:00 2021-10-03 00:00:00 Orders Only Doctor Unassigned, [place] [facility] 1.114 350.1.13.10 4.2.7.2.686 [id number] [facility] 2021-09-27 00:00:00 2021-09-27 00:00:00 Telephone Jhony Rothman [facility] 1..114 350.1.13.10 4.2.7.2.686 [id number] [facility] 2021-09-23 11:00:00 2021-09-23 11:05:47 Outpatient R JHONY ROTHMAN [facility] [id number] [facility] 2021-09-23 11:00:00 2021-09-23 11:05:47 Office Visit Jhony Rothman [facility] 1..840.114 350.1.13.10 4.2.7.2.686 [id number] [facility] 2021-09-21 19:12:00 2021-09-21 23:04:00 Emergency X EMILY CORDOVAROB [facility] ERT [id number] [facility] 2021-09-21 19:12:00 2021-09-21 23:04:00 Emergency Paris Cordova [facility] 1..840.114 350.1.13.10 4.2.7.2.686 [id number] [facility] 2021-09-21 19:12:00 2021-09-21 23:04:00 Emergency X PARIS CORDOVA [facility] ERT [id number] [facility] 2020-08-18 00:00:00 2020-08-18 00:00:00 Outpatient LISA HUNTLEY [facility] [id number] [facility] 2020-08-16 16:08:40 2020-08-16 16:23:40 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, [facility] Thao Sanders [facility] 1..840.114 350.1.13.10 4.2.7.2.686 [id number] [facility] 2020-08-16 16:15:00 2020-08-16 16:15:00 Outpatient THAO VILLAREAL [facility] [id number] [facility] 2020-08-16 00:00:00 2020-08-16 00:00:00 Orders Only Doctor Unassigned, [place] [facility] [id number] 350.1.13.10 4.2.7.2.686 [id number] [facility] 2020-07-05 10:58:58 2020-07-05 23:59:00 Hospital Encounter Jorgejorge luis [facility] 1.2840.114 350.1.13.10 4.2.7.2.686 [id number] [facility] 2020-07-05 12:00:00 2020-07-05 12:00:[address] [id number] 2020-07-05 10:55:38 2020-07-05 11:10:38 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, [facility] Main Jorgejorge luis [facility] 1.2840.114 350.1.13.10 4.2.7.2.686 [id number] [facility] 2020-07-05 00:00:00 2020-07-05 00:00:00 Orders Only Doctor Unassigned, [place] [facility] 1.2840.114 350.1.13.10 4.2.7.2.686 [id number] [facility] 2020-05-02 17:43:00 2020-05-02 19:32:00 Emergency X TIMBO GARCIA [facility] ERT [id number] [facility] 2019-10-22 00:00:00 2019-10-22 00:00:00 Patient Secure Msg Doctor Unassigned, [place] [facility] 1.2840.114 350.1.13.10 4.2.7.2.686 [id number] [facility] 2019-10-21 09:00:00 2019-10-21 09:00:00 Outpatient R RADHA OLIVEIRA [facility] [id number] [facility] 2019-10-21 08:00:00 2019-10-21 08:00:00 Outpatient R [facility] [id number] [facility] 2017-03-27 16:00:00 2017-03-27 16:00:00 Outpatient R JHONY ROTHMAN [facility] RAD [id number] [facility] Results Test Description Test Time Test Comments Results Result Co mments Source [id number] 00:47:38* Test Item Value Reference Range Interpretation Comme nts NA (test code = 6982901447) 138 mmol/L 135-145 K (test code = 9975201756) 4.3 mmol/L 3.5-5.0 CL (test code = 6779487863) 107 mmol/L 98-108 CO2 TOTAL (test code = 1332618361) 24 mmol/L 23-31 AGAP (test code = 8832617303) 7 2-16 BUN (test code = 5622278699) 12 mg/dL 7-23 GLUCOSE (test code = 8847709644) 77 mg/dL 70-110 CREATININE (test code = 6190576701) 0.54 mg/dL 0.50-1.04 TOTAL BILI (test code = 7277277551) 0.6 mg/dL 0.1-1.1 CALCIUM (test code = 2461185624) 9.2 mg/dL 8.6-10.6 T PROTEIN (test code = 4924020147) 8.2 g/dL 6.3-8.2 ALBUMIN (test code = 0569278521) 4.5 g/dL 3.5-5.0 ALK PHOS (test code = 8545370673) 74 U/L 34-122 ALTv (test code = 1742-6) 14 U/L 5-35 AST(SGOT) (test code = 7121302255) 30 U/L 13-40 eGFR (test code = 44410-3) 114.4 mL/min/1.73m2 CKD-EPI eGFR (20 21). Assuming creatinine has been stable day-to-day for at least three months, the eGFR indicates Category G1 (>= 90 mL/min/1.73 m2) [facility]
--- NOTE | 2024-03-29 19:33 | RAD REPORT ---
EXAM: CT brain without contrast HISTORY: HEADACHE COMPARISON: 11/30/2023 TECHNIQUE: Multiple contiguous axial images were obtained and a CT of the brain without contrast. Sag ittal and coronal reformats were performed. One or more of the following dose reduction techniques were used: Automated exposure control, adjust ment of the mA and/or kV according to patient size, and/or iterative reconstruction. FINDINGS: No evidence of hydrocephalus, intracranial hemorrhage, or extra-axial fluid collection. The brain is normal in morphology. No evidence of midline shift or areas of brain edema. The calvarium is intact. The visualized paranasal sinuses and mastoid air cells are essentially clear . IMPRESSION: No evidence of acute intracranial abnormality.
[2024-03-29] MEDS ORDERED: KETOROLAC 30 MG/ML INJ ONE (20:25)
[2024-03-29] MEDS ORDERED: DIPHENHYDRAMINE 50 MG/ML VIAL ONE (20:26)
[2024-03-29] MEDS ORDERED: METOCLOPRAMIDE 10 MG/2mL INJ ONE (20:26)
--- NOTE | 2024-03-29 20:27 | RAD REPORT ---
EXAMINATION: ONE VIEW CHEST XR CLINICAL INDICATION: COUGH TECHNIQUE: Frontal chest projection is submitted. Examination is limited by patient positioning and t echnique. COMPARISON: 07/18/2023 FINDINGS: The lungs are well inflated and clear. The heart is normal in size. No displaced fractures identified . IMPRESSION: No acute intrathoracic abnormalities.
[2024-03-29 20:28] LABS: Absolute Basophils 0.1 K/uL (0-0.5); Absolute Eosinophils 0.1 K/uL (0-0.5); Absolute Lymphocytes (CBC) 3.9 K/uL (0.7-4.9); Absolute Monocytes 0.5 K/uL (0.1-1.3); Absolute Neutrophil 5.4 K/uL (1.8-8.0); Basophils % 1.3 % (0-1.3); Eosinophils % 1.4 % (0-4.4); Hematocrit 39.5 % (36.0-45.0); Hemoglobin 12.5 g/dL (12.0-15.0); MCH 26.2 pg (27.0-35.0); MCHC 31.6 g/dL (32.0-36.0); MPV 8.2 fL (7.6-11.3); Monocytes % 5.1 % (3.3-12.3); Neutrophils % 53.2 % (41.7-73.7); Nucleated Red Blood Cells % 0.1 % (0-0); Platelets 249 thou/uL (152-406); RBC Red Blood Cell Count 4.76 M/uL (3.86-4.86); Red Cell Distribution Width 14.5 % (12.1-15.2)
[2024-03-29 20:39] LABS: PT Prothrombin Time 12.4 SECONDS (9.4-12.5); Protime INR 1.11
[2024-03-29 20:45] LABS: Albumin 3.6 g/dL (3.4-5.0); Anion Gap 5.8 mEq/L (5.0-15.0); Bilirubin Total 0.2 mg/dL (0.2-1.0); Globulin 3.7 g/dL (2.3-3.5); Potassium 3.8 mEq/L (3.5-5.1); Protein, Total 7.3 g/dL (6.4-8.2)
--- NOTE | 2024-03-29 21:59 | RAD REPORT ---
EXAMINATION: CTA HEAD CLINICAL INDICATION: HEADACHE TECHNIQUE: Axial CT images were obtained through the head after intravenous contrast utilizing angiog raphic protocol with 3D post-processing (maximum intensity projection images, volume rendered images and/or shaded surface rendered images). One or more of the following dose reduction technique s were used: Automated exposure control, adjustment of the mA and/or kV according to patient size, and/or iterative reconstruction. Unless otherwise specified, incidental findings do not require dedic ated imaging follow-up. COMPARISON: No prior exam. FINDINGS: ICA: The petrous, cavernous, and supraclinoid segments of the bilateral internal carotid arteries are normal. The ophthalmic artery origins are visualized and normal. The posterior communicating arteries are patent. VLADIMIR: Anterior cerebral arteries are normal bilaterally. The anterior communicating artery is patent. MCA: Middle cerebral arteries are normal bilaterally. CRUSHER FEEDER: Posterior cerebral arteries are normal bilaterally. Vertebrobasilar: The vertebral arteries are patent. The basilar artery is normal in appearance. 3D images confirm these findings. IMPRESSION: No significant flow abnormality is identified.
--- NOTE | 2024-03-29 22:03 | RAD REPORT ---
EXAMINATION: CTA NECK CLINICAL INDICATION: PAIN TECHNIQUE: Axial CT images were obtained from the aortic arch to the skull base after intravenous con trast utilizing angiographic protocol with 3D post-processing (maximum intensity projection images, volume rendered images and/or shaded surface rendered images). One or more of the following dose redu ction techniques were used: Automated exposure control, adjustment of the mA and/or kV according to patient size, and/or iterative reconstruction. Unless otherwise specified, incidental findings do not require dedicated imaging follow-up. COMPARISON: No prior exam. FINDINGS: AORTA: The imaged aortic arch is normal. CCA: The common carotid arteries are patent and normal in caliber. ICA/ECA: Bilateral internal and external carotid arteries are patent. There is no significant interna l carotid artery stenosis. VERTEBRAL: The cervical vertebral arteries are patent. The vertebral arteries are codominant. SOFT TISSUE: No significant neck soft tissue abnormalities. The visualized lung apices are clear. 3D images confirm these findings. IMPRESSION: No significant flow abnormality of the neck vessels is identified. NASCET criteria used. Mild 0-49% stenosis Moderate 50-69% stenosis Severe 70-99% stenosis
--- NOTE | 2024-03-29 22:07 | EDPHYS ---
Physician Documentation [facility] Name: Marie Kearns Age: 48 yrs Sex: Female : 1975 Arrival Date: 03/29/2024 Time: 17:42 Bed 6 Private MD: GINGER Physician Baljit Murguia HPI: 03/29 19:33 This 48 yrs old Black Female presents to ER via Ambulatory with complaints of Headache, zuleima Neck Pain, <24hrs Old, Facial Swelling, Blurred Vision. 19:33 The patient complains of pain to the left occipital area and left base of the skull. zuleima The patient describes the headache as pounding. Onset: The symptoms/episode began/occurred yesterday. Associated signs and symptoms: Pertinent positives:. OUTPATIENT INTERVIEWING CLERK: 22:52 Not cp4 Historical: - Allergies: 17:55 PENICILLINS; ll1 17:55 Tylenol-Codeine #3; ll1 - PMHx: 17:55 Arthritis; Asthma; Bipolar disorder; ll1 - PSHx: 17:55 Ligation of fallopian tube; ll1 - Immunization history:: Adult Immunizations up to date. - Infectious Disease History:: Denies. - Social history:: Smoking status: Patient reports the use of cigarette tobacco products, smokes one-half pack cigarettes per day. ROS: 19:39 Constitutional: Negative for fever, chills, and weight loss, Eyes: Negative for injury, zuleima pain, redness, and discharge, ENT: Negative for injury, pain, and discharge, Neck: Negative for injury, pain, and swelling, Cardiovascular: Negative for chest pain, palpitations, and edema, Respiratory: Negative for shortness of breath, cough, wheezing, and pleuritic chest pain, Abdomen/GI: Negative for abdominal pain, nausea, vomiting, diarrhea, and constipation, Back: Negative for injury and pain, : Negative for injury, bleeding, discharge, and swelling, MS/Extremity: Negative for injury and deformity, Skin: Negative for injury, rash, and discoloration, Psych: Negative for depression, anxiety, suicide ideation, homicidal ideation, and hallucinations, Allergy/Immunology: Negative for hives, rash, and allergies, Endocrine: Negative for neck swelling, polydipsia, polyuria, polyphagia, and marked weight changes, Hematologic/Lymphatic: Negative for swollen nodes, abnormal bleeding, and unusual bruising, 19:39 Neuro: Positive for headache, Exam: 19:39 Constitutional: This is a well developed, well nourished patient who is awake, alert, zuleima and in no acute distress. Head/Face: Normocephalic, atraumatic. Eyes: Pupils equal round and reactive to light, extra-ocular motions intact. Lids and lashes normal. Conjunctiva and sclera are non-icteric and not injected. Cornea within normal limits. Periorbital areas with no swelling, redness, or edema. ENT: Nares patent. No nasal discharge, no septal abnormalities noted. Tympanic membranes are normal and external auditory canals are clear. Oropharynx with no redness, swelling, or masses, exudates, or evidence of obstruction, uvula midline. Mucous membranes moist. Neck: Trachea midline, no thyromegaly or masses palpated, and no cervical lymphadenopathy. Supple, full range of motion without nuchal rigidity, or vertebral point tenderness. No Meningismus. Chest/axilla: Normal chest wall appearance and motion. Nontender with no deformity. No lesions are appreciated. Cardiovascular: Regular rate and rhythm with a normal S1 and S2. No gallops, murmurs, or rubs. Normal PMI, no JVD. No pulse deficits. Respiratory: Lungs have equal breath sounds bilaterally, clear to auscultation and percussion. No rales, rhonchi or wheezes noted. No increased work of breathing, no retractions or nasal flaring. Abdomen/GI: Soft, non-tender, with normal bowel sounds. No distension or tympany. No guarding or rebound. No evidence of tenderness throughout. Back: No spinal tenderness. No costovertebral tenderness. Full range of motion. Skin: Warm, dry with normal turgor. Normal color with no rashes, no lesions, and no evidence of cellulitis. MS/ Extremity: Pulses equal, no cyanosis. Neurovascular intact. Full, normal range of motion., bilateral aka Psych: Awake, alert, with orientation to person, place and time. Behavior, mood, and affect are within normal limits. 19:39 Musculoskeletal/extremity: DVT Exam: No signs of deep vein thrombosis. no pain, no swelling, no tenderness, negative Homans' sign noted on exam, no appreciated bluish discoloration, no erythema, no increased warmth, 19:39 Neuro: Orientation: is normal, appropriate for stated age, no acute changes, Mentation: is normal, appropriate for stated age, no acute changes, Memory: is normal, appropriate for stated age, no acute changes, Cranial nerves: grossly normal, is grossly normal based on the patient's age, no acute changes, Cerebellar function: is grossly normal, Motor: is normal, is grossly normal based on the patient's age, no acute changes, moves all fours, Sensation: is normal, no obvious gross deficits, appropriate no acute changes, Gait: is steady, appropriate for age, is unsteady, Deep tendon reflexes are 2+ (normal) in the bilateral brachioradialis, bicep, tricep and patellar and Achilles tendons, seizure activity, is not displayed by the patient, 20:23 ECG was reviewed by the Attending Physician. zuleima 20:41 ECG was reviewed by the Attending Physician. [facility] 20:43 ECG was reviewed by the Attending Physician. [facility] Vital Signs: 17:58 BP 130 / 75; Pulse 63; Resp 16; Temp 97.8; Pulse Ox 100% ; Weight 81.65 kg; Height 5 ll1 ft. 4 in. ; Pain 10/10; 20:40 BP 119 / 61; Pulse 67; Resp 18; Pulse Ox 98% ; cp4 21:44 BP 115 / 70; Pulse 66; Resp 18; Pulse Ox 98% ; cp4 22:52 BP 112 / 58; Pulse 67; Resp 18; Pulse Ox 99% ; cp4 17:58 Body Mass Index 30.90 (81.65 kg, 162.56 cm) ll1 17:58 Pain Scale: Adult ll1 NIH Stroke Scale Scores: 19:39 NIHSS Score: 0 zuleima Eddi Coma Score: 19:43 Eye Response: spontaneous(4). Motor Response: obeys commands(6). Verbal Response: zuleima oriented(5). Total: 15. MDM: 19:06 Medical Screening Exam initiated zuleima 19:06 Medical Screening Exam initiated zuleima 19:43 Differential diagnosis: cerebral abscess, cervical epidural bleed, cervical perispinal zuleima abcess, cluster headache, cerebral vascular accident, hyponatremia, intracerebral hemorrhage, meningitis, migraine, neoplasm, otitis, sinusitis, subarachnoid bleed, subdural hematoma, temporal arteritis, tension headache, traumatic injuries, trigeminal neuralgia, uremia, vasomotor headache. Data reviewed: vital signs, nurses notes, lab test result(s), EKG, radiologic studies, CT scan. Consideration of Admission/Observation Escalation of care including admission/observation considered. I considered the following discharge prescriptions or medication management in the emergency department Medications were administered in the Emergency Department. See MAR. Independent interpretation of the following test(s) in the Emergency Department EKG: See my EKG interpretation above. Test considered but Not performed: MRI: NO MRI BRAIN. Care significantly affected by the following chronic conditions: ASTHMA, OA, BP. 03/29 19:33 Order name: CBC with Diff; Complete Time: 20:42 [facility] 03/29 19:33 Order name: Comprehensive Metabolic Panel; Complete Time: 20:54 [facility] 03/29 19:33 Order name: PT-INR; Complete Time: 20:42 [facility] 03/29 19:33 Order name: Urinalysis w/ reflexes; Complete Time: 22:38 [facility] 03/29 19:45 Order name: UDS [facility] 03/29 20:27 Order name: Troponin High Sensitivity; Complete Time: 22:06 [facility] 03/29 18:30 Order name: CT Head Brain wo Cont; Complete Time: 20:19 03/29 19:33 Order name: CT Head Angio; Complete Time: 22:06 [facility] 03/29 19:33 Order name: CT Neck Angio; Complete Time: 22:06 [facility] 03/29 19:45 Order name: Chest Single View XRAY; Complete Time: 20:42 [facility] 03/29 19:45 Order name: EKG; Complete Time: 19:45 [facility] 03/29 20:27 Order name: EKG: REPEAT PLEASE; Complete Time: 20:27 [facility] 03/29 19:33 Order name: Oxygen: 2 LITERS; Complete Time: 20:33 [facility] 03/29 19:45 Order name: EKG - Nurse/Tech; Complete Time: 19:58 [facility] 03/29 20:27 Order name: EKG - Nurse/Tech; Complete Time: 20:40 [facility] EC:23 Rate is 63 beats/min. Rhythm is regular. QRS [place] is Normal. CO interval is normal. QRS zuleima interval is normal. QT interval is normal. No Q waves. T waves are Normal. No ST changes noted. Clinical impression: NSR w/ Non-specific ST/T Changes and No evidence of ischemia. Interpreted by me. Reviewed by me. 20:41 Rate is 63 beats/min. Rhythm is regular. QRS [place] is Normal. CO interval is normal. QRS zuleima interval is normal. QT interval is normal. No Q waves. T waves are Normal. No ST changes noted. Clinical impression: NSR w/ Non-specific ST/T Changes and No evidence of ischemia. Administered Medications: 20:32 Drug: metoCLOPramide IVP 10 mg IVP once; over 1 to 2 minutes Route: IVP; Site: left cp4 hand; 22:14 Follow up: Response: No adverse reaction cp4 20:33 Drug: diphenhydrAMINE IVP 50 mg IVP once Route: IVP; Site: left hand; cp4 22:14 Follow up: Response: No adverse reaction cp4 20:33 Drug: Ketorolac IVP 30 mg IVP once Route: IVP; Site: left hand; cp4 22:14 Follow up: Response: No adverse reaction cp4 Disposition Summary: 03/29/24 22:07 Discharge Ordered Notes: Location: Home zuleima Problem: new zuleima Symptoms: have improved zuleima Condition: Stable zuleima Diagnosis - Headache zuleima Followup: zuleima - With: Private Physician - When: 2 - 3 days - Reason: Recheck today's complaints, Continuance of care, Re-evaluation by your physician Followup: zuleima - With: Moses Dowd MD - When: 2 - 3 days - Reason: Recheck today's complaints, Re-evaluation by your physician Discharge Instructions: - Discharge Summary Sheet zuleima - General Headache Without Cause zuleima - General Headache Without Cause, [id number] Forms: - Medication Reconciliation Form zuleima - Antibiotic Education zuleima - Prescription Opioid Use zuleima - Patient Portal Instructions [facility] - Leadership Thank You Letter [facility] Prescriptions: - ondansetron 4 mg Oral Tablet,disintegrating - take 1 tablet ORAL route every 8 hours for 5 days PRN NAUSEA; 20 tablet; zuleima Refills: 0, Product Selection Permitted - Ibuprofen 600 mg Oral Tablet - take 1 tablet ORAL route every 6 hours As needed take with food; 30 tablet; zuleima Refills: 0, Product Selection Permitted NIH Stroke Scale - NIH Stroke Score Date: 03/29/2024 Time: 19:39 Total Score = 0 10. Dysarthria (speech clarity - read or repeat words) - 0(Normal) 11. Extinction and Inattention (visual/tactile/auditory/spatial/personal) - 0(No abnormality) 1a. Level of Consciousness (LOC) - 0(Alert) 1b. Level of Consciousness (LOC) (Month \T\ Age) - 0(Both) 1c. LOC Commands (Open \T\ Closes Eyes/Satellite Tv Installer) - 0(Both) 2. Best Gaze (Lateral Gaze Paresis) - 0(Normal) 3. Visual Field Loss - 0(No visual loss) 4. Facial Palsy - 0(Normal) 5a. Left Arm: Motor (10-second hold) - 0(No drift) 5b. Right Arm: Motor (10-second hold) - 0(No drift) 6a. Left Leg: Motor (5-second hold - always test supine) - 0(No drift) 6b. Right Leg: Motor (5-second hold - always test supine) - 0(No drift) 7. Limb Ataxia (finger/nose \T\ heel/sanches - test with eyes open) - 0(Absent) 8. Sensory Loss (pinprick arms/legs/face) - 0(Normal) 9. Best Language: Aphasia (description/naming/reading) - 0(No aphasia) Initials: zuleima Signatures: Dispatcher [employer] EDMS Baljit Murguia MD MD cha Lewis, Lynsay RN RN ll1 Prudence Bills cp4 Corrections: (The following items were deleted from the chart) 19:33 19:33 CBC+H.LAB.BRZ ordered. EDMS EDMS 19:33 19:33 COMPREHENSIVE METABOLIC PANEL+C.LAB.BRZ ordered. EDMS EDMS 19:33 19:33 PROTIME (+INR)+COAG.LAB.BRZ ordered. EDMS EDMS 19:33 19:33 Urinalysis+U.LAB.BRZ ordered. EDMS EDMS 19:46 19:45 Chest Single View+RAD.RAD.BRZ ordered. EDMS EDMS 19:46 19:46 URINE DRUG SCREEN+UC.LAB.BRZ ordered. EDMS EDMS
--- NOTE | 2024-03-29 22:07 | ER ---
Nurse's Notes [facility] Name: Marie Kearns Age: 48 yrs Sex: Female : 1975 Arrival Date: 03/29/2024 Time: 17:42 Bed 6 Private MD: Diagnosis: Headache Presentation: 03/29 17:58 Chief complaint: Patient states: L sided CAIN throbs, heaviness started about 1 AM last ll1 night. "Foster like something burst". Pain radiates into L side of neck and arm for 5 hours. Coronavirus screen: Client denies travel out of the [place] in the last 14 days. At this time, the client does not indicate any symptoms associated with coronavirus-19. Ebola Screen: Patient denies travel to an Ebola-affected area in the 21 days before illness onset. Initial Sepsis Screen: Does the patient meet any 2 criteria? No. Patient's initial sepsis screen is negative. Does the patient have a suspected source of infection? No. Patient's initial sepsis screen is negative. Risk Assessment: Do you want to hurt yourself or someone else? Patient reports no desire to harm self or others. Onset of symptoms. 17:58 Method Of Arrival: Ambulatory ll1 17:58 Acuity: JESSICA 3 ll1 Triage Assessment: 17:58 General: Appears distressed, uncomfortable, Behavior is calm, cooperative, appropriate ll1 for age. Pain: Complains of pain in L side CAIN Quality of pain is described as aching, throbbing, Pain began 1 AM. Neuro: Reports headache. REWRITE EDITOR: 22:52 Not cp4 Historical: - Allergies: 17:55 PENICILLINS; ll1 17:55 Tylenol-Codeine #3; ll1 - PMHx: 17:55 Arthritis; Asthma; Bipolar disorder; ll1 - PSHx: 17:55 Ligation of fallopian tube; ll1 - Immunization history:: Adult Immunizations up to date. - Infectious Disease History:: Denies. - Social history:: Smoking status: Patient reports the use of cigarette tobacco products, smokes one-half pack cigarettes per day. Screenin:38 [facility] ED Fall Risk Assessment (Adult) History of falling in the last 3 months, cp4 including since admission No falls in past 3 months (0 pts) Confusion or Disorientation No (0 pts) Intoxicated or Sedated No (0 pts) Impaired Gait No (0 pts) Mobility Assist Device Used No (0 pt) Altered Elimination No (0 pt) Score/Fall Risk Level 0 - 2 = Low Risk Oriented to surroundings, Maintained a safe environment, Assessed \\T\\ reinforced patient's understanding of fall precautions, Hourly rounding (assess needs \\T\\ fall precautionary measures) done. Abuse screen: Denies threats or abuse. Nutritional screening: No deficits noted. Tuberculosis screening: No symptoms or risk factors identified. Assessment: 20:38 General: Appears in no apparent distress. uncomfortable, Behavior is calm, cooperative, cp4 appropriate for age. Pain: Complains of pain in left base of the skull and left occipital area Pain currently is 10 out of 10 on a pain scale. Neuro: Level of Consciousness is awake, alert, obeys commands, Oriented to person, place, time, situation. Cardiovascular: Patient's skin is warm and dry. Respiratory: Airway is patent Respiratory effort is even, unlabored. GI: No signs and/or symptoms were reported involving the gastrointestinal system. : No signs and/or symptoms were reported regarding the genitourinary system. EENT: No signs and/or symptoms were reported regarding the EENT system. Derm: No signs and/or symptoms reported regarding the dermatologic system. Musculoskeletal: No signs and/or symptoms reported regarding the musculoskeletal system. 21:05 Reassessment: Patient and/or family updated on plan of care and expected duration. Pain ha1 level reassessed. Patient is alert, oriented x 3, equal unlabored respirations, skin warm/dry/pink. Patient states symptoms have improved. 22:13 Reassessment: Disposition pending. Waiting on urinalysis. cp4 22:14 Reassessment: Patient and/or family updated on plan of care and expected duration. Pain ha1 level reassessed. Patient is alert, oriented x 3, equal unlabored respirations, skin warm/dry/pink. Vital Signs: 17:58 BP 130 / 75; Pulse 63; Resp 16; Temp 97.8; Pulse Ox 100% ; Weight 81.65 kg; Height 5 ll1 ft. 4 in. ; Pain 10/10; 20:40 BP 119 / 61; Pulse 67; Resp 18; Pulse Ox 98% ; cp4 21:44 BP 115 / 70; Pulse 66; Resp 18; Pulse Ox 98% ; cp4 22:52 BP 112 / 58; Pulse 67; Resp 18; Pulse Ox 99% ; cp4 17:58 Body Mass Index 30.90 (81.65 kg, 162.56 cm) ll1 17:58 Pain Scale: Adult ll1 [place] Coma Score: 19:43 Eye Response: spontaneous(4). Motor Response: obeys commands(6). Verbal Response: zuleima oriented(5). Total: 15. NIH Stroke Scale Scores: 19:39 NIHSS Score: 0 zuleima ED Course: 17:46 Patient arrived in ED. im 17:55 Arm band placed on. ll1 18:01 Triage completed. ll1 19:06 Baljit Murguia MD is Attending Physician. zuleima 19:30 CT Head Brain wo Cont In Process Unspecified. EDMS 20:00 EKG done, by ED staff, reviewed by Baljit Murguia MD. oe 20:12 Prudence Bills is Primary Nurse. cp4 20:20 Chest Single View XRAY In Process Unspecified. EDMS 20:20 Inserted saline lock: 22 gauge in left hand, using aseptic technique. Blood collected. oe Flushed with 10 mL NS. 20:38 Bed in low position. Call light in reach. Side rails up X 1. cp4 20:38 No provider procedures requiring assistance completed. cp4 21:43 CT Head Angio In Process Unspecified. EDMS 21:44 CT Neck Angio In Process Unspecified. EDMS 22:07 Moses Dowd MD is Referral Physician. zuleima 22:20 Urinalysis w/ reflexes Sent. cp4 22:20 Urine collected: clean catch specimen, clear. cp4 23:07 Provided Education on: headaches. cp4 23:07 intact, bleeding controlled, No redness/swelling at site. Pressure dressing applied. cp4 Administered Medications: 20:32 Drug: metoCLOPramide IVP 10 mg IVP once; over 1 to 2 minutes Route: IVP; Site: left cp4 hand; 22:14 Follow up: Response: No adverse reaction cp4 20:33 Drug: diphenhydrAMINE IVP 50 mg IVP once Route: IVP; Site: left hand; cp4 22:14 Follow up: Response: No adverse reaction cp4 20:33 Drug: Ketorolac IVP 30 mg IVP once Route: IVP; Site: left hand; cp4 22:14 Follow up: Response: No adverse reaction cp4 Medication: 20:38 VIS not applicable for this client. cp4 Outcome: 22:07 Discharge ordered by . zuleima 23:07 Discharged to home ambulatory, cp4 23:07 Condition: stable 23:07 Discharge instructions given to patient, Instructed on discharge instructions, follow up and referral plans. medication usage, Demonstrated understanding of instructions, follow-up care, medications, States she cannot take ibuprofen. Prescription not given. Prescriptions given X 1, 23:09 Patient left the ED. cp4 NIH Stroke Scale - NIH Stroke Score Date: 03/29/2024 Time: 19:39 Total Score = 0 10. Dysarthria (speech clarity - read or repeat words) - 0(Normal) 11. Extinction and Inattention (visual/tactile/auditory/spatial/personal) - 0(No abnormality) 1a. Level of Consciousness (LOC) - 0(Alert) 1b. Level of Consciousness (LOC) (Month \\T\\ Age) - 0(Both) 1c. LOC Commands (Open \\T\\ Closes Eyes/Coverage Specialist) - 0(Both) 2. Best Gaze (Lateral Gaze Paresis) - 0(Normal) 3. Visual Field Loss - 0(No visual loss) 4. Facial Palsy - 0(Normal) 5a. Left Arm: Motor (10-second hold) - 0(No drift) 5b. Right Arm: Motor (10-second hold) - 0(No drift) 6a. Left Leg: Motor (5-second hold - always test supine) - 0(No drift) 6b. Right Leg: Motor (5-second hold - always test supine) - 0(No drift) 7. Limb Ataxia (finger/nose \\T\\ heel/sanches - test with eyes open) - 0(Absent) 8. Sensory Loss (pinprick arms/legs/face) - 0(Normal) 9. Best Language: Aphasia (description/naming/reading) - 0(No aphasia) Initials: [facility] Signatures: Dispatcher [employer] EDMS Baljit Murguia MD MD cha Espinosa, [place] oe Lewis, Lynsay, RN RN ll1 Soledad Ballard RN RN ha1 Sanam Fry Christina cp4 Corrections: (The following items were deleted from the chart) 18:04 17:58 Chief complaint: Patient states: L sided CAIN throbs, heaviness started ll1 about 1 AM last night. L neck for 5 hours. and L arm tingly for 2 hours. ll1
[2024-03-29 22:27] LABS: Specific Gravity > 1.030 (1.005-1.030); Sqamous Epithelial None Seen /HPF (None Seen); Urine Bacteria None Seen /HPF (<20); Urine Bilirubin NEGATIVE (Negative); Urine Blood Trace (Negative); Urine Clarity Clear (Clear); Urine Color Light-Yellow (Yellow); Urine Culture Reflex Order NOT NEEDED; Urine Glucose NEGATIVE (Negative); Urine Ketones NEGATIVE (Negative); Urine Microscopic Reflex YN ORDER UMIC; Urine Nitrite NEGATIVE (Negative); Urine Protein NEGATIVE (Negative); Urine RBC <5 /HPF (None Seen); Urine Urobilinogen Normal (Normal); Urine WBC <5 /HPF (<5); Urine pH 5.5 (5.0-7.0)
[2024-03-29 22:46] LABS: Barbiturates NEGATIVE (NEGATIVE); Benzodiazepines NEGATIVE (NEGATIVE); Cocaine NEGATIVE (NEGATIVE); METHAMPHETAM NEGATIVE (NEGATIVE); Methadone NEGATIVE (NEGATIVE); Opiates POSITIVE (NEGATIVE); Phencyclidine NEGATIVE (NEGATIVE); THC Cannibis NEGATIVE (NEGATIVE)
[2024-03-29 23:29] VITALS: TEMP 97.8
[2024-03-29 23:37] VITALS: BP 112/58; O2SAT 99
--- NOTE | 2024-04-01 12:05 | EKG ---
Test Date: 2024-03-29 Test Time: 19:54:53 Investment Manager: COLTEN MEASUREMENT RESULTS: Intervals: Rate: 63 UT: 134 QRSD: 74 QT: 422 QTc: 431 [place]: P: 32 UT: 134 QRS: 70 T: 42 INTERPRETIVE STATEMENTS: Normal sinus rhythm Cannot rule out Anterior infarct, age undetermined Abnormal ECG Compared to ECG 11/30/2023 22:19:50 No significant changes Electronically Signed On 04-01-24 12:03:19 SINKER WINDER by Sami Langley
--- NOTE | 2024-04-01 12:05 | EKG ---
Test Date: 2024-03-29 Test Time: 20:38:25 Platform Attendant: COLTEN MEASUREMENT RESULTS: Intervals: Rate: 63 UT: 134 QRSD: 68 QT: 424 QTc: 433 [place]: P: 66 UT: 134 QRS: 74 T: 55 INTERPRETIVE STATEMENTS: Normal sinus rhythm with sinus arrhythmia Cannot rule out Anterior infarct, age undetermined Abnormal ECG Compared to ECG 03/29/2024 19:54:53 No significant changes Electronically Signed On 04-01-24 12:03:09 REAMING PRESS OPERATOR by Sami Langley
== END 2024-03-29 23:09 | disposition home or self-care (01) ==
LOC: ER 17:42
DX: R51.9 Headache, unspecified (principal); F17.210 Nicotine dependence, cigarettes, uncomplicated
CPT/HCPCS: 93005 ×2; 85025; 81001; 36415; 85610; 84484; 80053; 80307; 70450; 70496; 70498; 71045; 96375; 96374; 99284; Q9967; J2765; J1200